=== PATIENT | male | born 1965 | race Caucasian/White ===

== ENCOUNTER 2020-02-09 10:11 | Emergency (ER) | payer OTHER ==
[~2020-02-09] VITALS: Ht 177.8 cm; Wt 107.5 kg
[2020-02-09 11:04] LABS: BASOPHILS ABSOLUTE AUTO 0.03 K/mm3 (0.00-0.23); BASOPHILS PERCENT AUTO 1 % (0-2); EOSINOPHILS ABSOLUTE AUTO 0.11 K/mm3 (0.00-0.68); EOSINOPHILS PERCENT AUTO 2 % (0-6); Hematocrit 46.9 % (37.0-53.0); Hemoglobin 16.2 g/dL (13.5-17.5); IMMATURE GRAN ABSOLUTE AUTO 0.02 K/mm3 (0.00-0.10); IMMATURE GRAN PERCENT AUTO 0 % (0-1); LYMPHOCYTES ABSOLUTE AUTO 1.82 K/mm3 (0.84-5.20); LYMPHOCYTES PERCENT AUTO 36 % (21-46); MONOCYTES ABSOLUTE AUTO 0.42 K/mm3 (0.16-1.47); MONOCYTES PERCENT AUTO 8 % (4-13); Mean Corpuscular HGB Conc 34.5 g/dL (31.5-36.5); Mean Corpuscular Volume 99 fL (80-100); NEUTROPHILS ABSOLUTE AUTO 2.72 K/mm3 (1.96-9.15); NEUTROPHILS PERCENT AUTO 53 % (41-73); Platelet Count 179 K/mm3 (150-400); RDW Coefficient Variation 11.9 % (11.7-14.2); RDW Standard Deviation 43.2 fL (35.1-46.3); Red Blood Cell Count 4.76 M/mm3 (4.30-5.90); White Blood Cell Count 5.12 K/mm3 (4.00-11.30)
[2020-02-09 11:20] LABS: International Normalized Ratio 1.02; Prothrombin Time Results 10.9 Sec (9.7-11.5)
[2020-02-09 11:22] LABS: Alanine Aminotransfer (ALT/SGP 66 U/L (12-78); Albumin, Blood 3.7 g/dL (3.4-5.0); Albumin/Globulin Ratio 1.1 (0.8-1.8); Alk Phos 236 U/L (50-136); Anion Gap 8 mmol/L (6-16); Aspartate Aminotrans (AST/SGOT 72 U/L (12-37); Bilirubin, Total 0.8 mg/dL (0.1-1.0); Blood Urea Nitrogen 7 mg/dL (8-24); Bun/Creatinine Ratio 8.6 (12.0-20.0); CO2, Blood 22 mmol/L (21-32); Calcium, Blood 8.8 mg/dL (8.5-10.1); Chloride, Blood 107 mmol/L (98-108); Creatinine, Blood 0.82 mg/dL (0.60-1.20); Globulin, Blood 3.4 g/dL (2.2-4.0); Glomerular Filtration Rate >60 (60-); Glucose, Blood 281 mg/dL (70-99); Potassium, Blood 3.8 mmol/L (3.5-5.5); Sodium, Blood 137 mmol/L (136-145); Total Protein, Blood 7.1 g/dL (6.4-8.2); Troponin I <0.015 ng/mL (0.000-0.040)
[2020-02-09] MEDS ORDERED: OMEP20ER PO (12:21)
[2020-02-09] MEDS ORDERED: Tambocor100 MG PO (12:21)
[2020-02-09] MEDS ORDERED: METO25 PO (12:22)
[2020-02-09] MEDS ORDERED: FURO20 PO (12:22)
[2020-02-09] MEDS ORDERED: BASAGLAR K100 UNIT/5 SC (12:23)
[2020-02-09] MEDS ORDERED: ADMELOG100 UNIT/2 SC (12:23)
[2020-02-09] MEDS ORDERED: GLIP5 PO (12:23)
== END 2020-02-09 16:07 | disposition home or self-care (01) ==
LOC: ER 10:11
PROVIDERS: Emergency Medicine
DX: E11.65 Type 2 diabetes mellitus with hyperglycemia (principal); E86.0 Dehydration; I25.2 Old myocardial infarction
CPT/HCPCS: 70470; 80053; 82947; 84484; 85025; 85610; 93005; 93010; 96361; 96374; 96375; 99285-25; J2405; J3010; J7030; Q9967

== ENCOUNTER 2020-09-03 18:13 | Inpatient (IN) | payer OTHER ==
[~2020-09-03] VITALS: Ht 177.8 cm; Wt 104.9 kg
[~2020-09-03 18:13] MED LIST: ADMELOG100 UNIT/2 SC; BASAGLAR K100 UNIT/5 SC; FURO20 PO; GLIP5 PO; METO25 PO; OMEP20ER PO; Tambocor100 MG PO
[2020-09-03 18:56] LABS: BASOPHILS PERCENT AUTO 0 % (0-2); EOSINOPHILS PERCENT AUTO 0 % (0-6); Hemoglobin 15.6 g/dL (13.5-17.5); IMMATURE GRAN ABSOLUTE AUTO 0.01 K/mm3 (0.00-0.10); IMMATURE GRAN PERCENT AUTO 0 % (0-1); LYMPHOCYTES ABSOLUTE AUTO 0.87 K/mm3 (0.84-5.20); LYMPHOCYTES PERCENT AUTO 29 % (21-46); MONOCYTES ABSOLUTE AUTO 0.24 K/mm3 (0.16-1.47); MONOCYTES PERCENT AUTO 8 % (4-13); Mean Corpuscular HGB 33.5 pg (26.0-34.0); Mean Corpuscular HGB Conc 35.5 g/dL (31.5-36.5); Mean Corpuscular Volume 94 fL (80-100); Mean Platelet Volume 10.2 fL (9.1-12.4); NEUTROPHILS ABSOLUTE AUTO 1.89 K/mm3 (1.96-9.15); NEUTROPHILS PERCENT AUTO 63 % (41-73); Platelet Count 125 K/mm3 (150-400); RDW Coefficient Variation 12.5 % (11.7-14.2); RDW Standard Deviation 43.8 fL (35.1-46.3); Red Blood Cell Count 4.66 M/mm3 (4.30-5.90); White Blood Cell Count 3.01 K/mm3 (4.00-11.30)
[2020-09-03 19:07] LABS: Alanine Aminotransfer (ALT/SGP 86 U/L (12-78); Albumin, Blood 2.9 g/dL (3.4-5.0); Albumin/Globulin Ratio 0.7 (0.8-1.8); Alk Phos 261 U/L (50-136); Anion Gap 8 mmol/L (6-16); Aspartate Aminotrans (AST/SGOT 169 U/L (12-37); Bilirubin, Total 1.4 mg/dL (0.1-1.0); Blood Urea Nitrogen 14 mg/dL (8-24); Bun/Creatinine Ratio 14.7 (12.0-20.0); CO2, Blood 24 mmol/L (21-32); Calcium, Blood 8.2 mg/dL (8.5-10.1); Chloride, Blood 97 mmol/L (98-108); Creatinine, Blood 0.95 mg/dL (0.60-1.20); Glomerular Filtration Rate >60 (60-); Glucose, Blood 274 mg/dL (70-99); Potassium, Blood 3.8 mmol/L (3.5-5.5); Sodium, Blood 129 mmol/L (136-145); Total Protein, Blood 6.9 g/dL (6.4-8.2)
[2020-09-03 20:22] LABS: Base Excess Venous 3.2 mmol/L; Bicarbonate Venous 27.6 mmol/L (24.0-30.0); PCO2 Venous 33.2 mmHg (38-42); PO2 Venous 101 mmHg (38-42); pH Blood Venous 7.51 (7.34-7.37)
--- NOTE | 2020-09-04 02:00 | NUR ---
PT ADMITTED TO ROOM ICU 8 AT 0035 THIS NIGHT. PT VERY TACHYPNEIC WITH EXERTION. GOOD HISTORIAN. STATES THAT HE HAS BEEN VERY SHORT OF BREATH AT HOME WHEREAS HE HAS BEEN NEAR SYNCOPAL AT TIMES. PT HAS NON PRODUCTIVE COUGH. WILL REVIEW CHART AND PLAN OF CARE FOR THIS PT.
[2020-09-04 04:43] LABS: BASOPHILS ABSOLUTE AUTO 0.01 K/mm3 (0.00-0.23); BASOPHILS PERCENT AUTO 0 % (0-2); EOSINOPHILS PERCENT AUTO 0 % (0-6); IMMATURE GRAN ABSOLUTE AUTO 0.02 K/mm3 (0.00-0.10); IMMATURE GRAN PERCENT AUTO 1 % (0-1); LYMPHOCYTES ABSOLUTE AUTO 0.47 K/mm3 (0.84-5.20); LYMPHOCYTES PERCENT AUTO 19 % (21-46); MONOCYTES ABSOLUTE AUTO 0.17 K/mm3 (0.16-1.47); MONOCYTES PERCENT AUTO 7 % (4-13); Mean Corpuscular HGB 33.6 pg (26.0-34.0); Mean Corpuscular HGB Conc 34.9 g/dL (31.5-36.5); Mean Corpuscular Volume 96 fL (80-100); Mean Platelet Volume 10.9 fL (9.1-12.4); NEUTROPHILS ABSOLUTE AUTO 1.78 K/mm3 (1.96-9.15); NEUTROPHILS PERCENT AUTO 73 % (41-73); Platelet Count 111 K/mm3 (150-400); RDW Coefficient Variation 12.5 % (11.7-14.2); RDW Standard Deviation 44.9 fL (35.1-46.3); Red Blood Cell Count 4.46 M/mm3 (4.30-5.90); White Blood Cell Count 2.45 K/mm3 (4.00-11.30)
[2020-09-04 05:04] LABS: Alanine Aminotransfer (ALT/SGP 80 U/L (12-78); Albumin, Blood 2.7 g/dL (3.4-5.0); Albumin/Globulin Ratio 0.7 (0.8-1.8); Alk Phos 250 U/L (50-136); Anion Gap 8 mmol/L (6-16); Aspartate Aminotrans (AST/SGOT 168 U/L (12-37); Bilirubin, Total 1.3 mg/dL (0.1-1.0); Blood Urea Nitrogen 15 mg/dL (8-24); Bun/Creatinine Ratio 18.8 (12.0-20.0); CO2, Blood 24 mmol/L (21-32); Calcium, Blood 7.7 mg/dL (8.5-10.1); Chloride, Blood 100 mmol/L (98-108); Globulin, Blood 3.8 g/dL (2.2-4.0); Glomerular Filtration Rate >60 (60-); Glucose, Blood 295 mg/dL (70-99); Potassium, Blood 4.7 mmol/L (3.5-5.5); Sodium, Blood 132 mmol/L (136-145); Total Protein, Blood 6.5 g/dL (6.4-8.2)
--- NOTE | 2020-09-04 05:18 | NUR ---
PT DEMONSTRATES POOR OXYGEN RESERVES. PT STANDS AT SIDE OF BED TO VOID, AND DESATURATES TO MID 80 PERCENT. INCREASED AIRVO FIO2 TO 94 PERCENT. PT RECOVERS SLOW. PT VOIDS Q.S. BACK TO BED, PT'S SATURATIONS IMPROVE AND AIRVO WAS PLACED BACK TO 82 PERCENT FIO2. PT BECOMES TACHYPNEIC WITH ANY EXERTION. PT INSTRUCTED THAT IF HE NEEDS TO VOID AGAIN, THAT HE WOULD NEED TO DO SO WHILE HE IS STILL IN BED. WILL CONTINUE TO MONITOR PT, AND WILL REPORT OFF TO ONCOMING RN.
--- NOTE | 2020-09-04 17:13 | NUR ---
ADMIT: 09/03/20 DISCHARGE: DX: COVID, Hypoxemia CC:kwilcox LEX CALL: RESIDENCE: home CAREGIVER:Nohemi Bellamy, Child, [id number] DX: Afib, CKD, COVID, GERD, HTN, see list DME: [facility], O2 and supplies CCM: Referral 01/14/2020 HOME HEALTH: none SUMMARY: Admit: 09/03/20 09/04/20- pt very SOB with minimal physical activity. No plan for d/c at this time. -liliam
--- NOTE | 2020-09-04 17:16 | NUR ---
Received report from ICU development officer Michelle that daughter is in ICU waiting room and may benefit from supportive visit. Pt COVID-19 positive and respiratory status is declining and is being intubated. Daughter Nohemi in ICU waiting room. Offered therapeutic listening and offered emotional support. Nohemi is tearful and this RN validated concerns. Continued therapeutic listening and answered questions. Spoke with Director Talent Acquisition Jasmina and discussed case. Jasmina will offer continued supportive visit. Palliative Care will remain available.
--- NOTE | 2020-09-04 17:30 | NUR ---
INTUBATION APPROX 1630, PT'S SPO2 STARTED TO DROP. BIPAP FIO2 INCREASED TO 90%. RT AND DR RG NOTIFIED OF CHANGED. PLAN FOR INTUBATION. RT AR, DR RG, 2 NURSING STUDENTS, PRIMARY RN IN ROOM. SACK FILLER AND ADDITIONAL RT SUPPORT AVIALABLE OUTSIDE OF ROOM. VITALS FILED SEPARTE 1645, 4MG VERSED GIVEN 1646, 60MG PROPOFOL GIVEN 1647, 40MG PROPOFOL GIVEN 1650 8.0 ETT PLACED 24 @ LIP 1650 PROPOFOL INFUSION STARTED AT 10MCG/KG/MIN NS BOLUS STARTED 1652 20MG PROPOFOL GIVEN 1654 PROPOFOL INFUSION INCRESED TO 20MCG/KG/MIN 1656 6MG VERSED GIVEN 1708 LEVOPHED STARTED 2MCG/MIN 1711 PROPFOL INFUSION INCREASED TO 40MCG/KG/MIN GROSSMAN PLACED PER ORDERS, OG PLACED. CENTRAL LINE PLACED BY DR RG TO RIGHT SUBLCLAVIAN. XRAY FOR CONFIRMATION
--- NOTE | 2020-09-04 17:55 | NUR ---
Spiritual care note: I met with dtr, Nohemi, in ICU waiting area while pt being intubated. She was clearly overwhelmed, tearful, and expressed great fear. She told me about pt's banegas with brain cancer and multiple other health issues. Nohemi has a loving, supportive spouse, and a close connection to her [place] community. Prayer is important and appreciated. Per RN recommendation, I encouraged Nohemi to go home and rest. She does not have Covid and has a young son at home. She responded well to spiritual direction, prayer, and affirmation of obvious love.
[2020-09-04 19:02] LABS: Source, Urine Catheter
[2020-09-04 19:19] LABS: Appearance, Urine Clear (Clear); Bilirubin, Urine Neg (Neg); Blood, Urine Neg (Neg); Color, Urine Yellow (P-Yellow); Glucose Qualitative, Urine 4+ (Neg); Ketones, Urine 1+ (Neg); Leukocyte Esterase, Urine Neg (Neg); Nitrite, Urine Neg (Neg); Protein, Urine 1+ (Neg); Specific Gravity, Urine 1.015 (1.003-1.022); Urobilinogen, Urine 2+ (Normal)
--- NOTE | 2020-09-04 19:22 | NUR ---
SHIFT SUMMARY PT INITIALLY ON AIRVO THIS MORNING, STARTED TO DROP SPO2 AT APPROX 1300. RT NOTIFIED AND PT PLACED TO BIPAP. PT TOLERATED FOR COUPLE HOURS AND STARTED TO DROP SPO2 AGAIN. PT INTUBATED PLACED ON VENT WITH SETTINGS AC 18/550/12.5/100% FIO2. DURING INTUBATION PT'S BP DROPPED. CENTRAL LINE PLACED TO RIGHT SUBCLAVIAN. LEVOPHED STARTED. ONCE BP RECOVERED FROM RSI AND 1L NS, LEVOPHED PLACED TO STANDBY. GROSSMAN AND OG PLACED. SEE PREVIOUS NOTE FOR MEDS ADMINISTERED DURING RSI. PT CURRENTLY REMAINS ON PROPOFOL AND PRECEDEX GTT FOR SEDATION.
--- NOTE | 2020-09-04 20:00 | NUR ---
ASSUMED CARE OF PT AT 1915. REPORT RECEIVED. PT PRESENTS IN BED. VENTED - AC 18, Tv 550, PEEP 12.5, FIO2 100 PERCENT. FIO2 HAS BEEN DECREASED TO 80 PERCENT, AND RT MADE PEEP ADJUSTMENT TO 12. WILL CONSIDER TITRATION OF FIO2. PT'S TEMP LOW AT 95.0 PER GROSSMAN TEMP PROBE. ADDED BEDSPREAD OVER PT. WILL WORK AT GETTING PT'S TEMPERATURE UP. DURING ADMIT PROCESS, PT HAD 96.6 TEMPORAL TEMPERATURE. PT AT THAT TIME ASKED FOR A PERSONAL FAN SECONDARY TO WHAT HE CLAIMED THAT HE WAS TOO WARM. WILL REVIEW CHART AND PLAN OF CARE FOR THIS PT.
[2020-09-04 20:02] LABS: PCO2 Arterial 31.8 mmHg (35-45); PO2 Arterial 133 mmHg (80-100); pH Blood Arterial 7.46 (7.35-7.45)
--- NOTE | 2020-09-04 22:00 | NUR ---
CALL MADE TO DR RG FOR DISCUSSION OF PT'S VENT, AND SETTINGS. NO CHANGES RECEIVED. WAS OK'D BY TO TITRATE FIO2 DOWN. WANTED TO LEAVE PEEP AT 12 THROUGH THE NIGHT. RATE REMAINS AT 18. RESULTS OF EARLIER ABG WAS RELAYED.
--- NOTE | 2020-09-04 23:47 | NUR ---
BEAR BHAVIKGGER WARMER PLACED ON PT SECONDARY TO FAILED ATTEMPTS TO GET PT'S TEMPERATURE TO GO HIGHER THAN 95.0 PER GROSSMAN TEMP PROBE. PENDING RESULTS. PT HAS NOT REQUIRED LEVOPHED FOR BLOOD PRESSURE SUPPORT. CALL RECEIVED FROM PT'S DAUGHTER. UPDATE GIVEN. WILL CONTINUE TO MONITOR.
--- NOTE | 2020-09-05 03:23 | NUR ---
SECONDARY TO PT'S TEMPERATURE BEING SLOW TO INCREASE, OPTED TO DO RECTAL TEMPERATURE. 95.1 RECTALLY VERSUS 95.2 TEMP PROVE GROSSMAN. CURRENT TEMP 96.3. VSS. CONTINUES ON PROPOFOL AND PRECEDEX FOR SEDATION. WILL CONSIDER DECREASING SEDATION. WILL DO SEDATION VACATION THIS MORNING. PT MAINTAINS OXYGEN SATURATIONS > 90 PERCENT WITH AC 18, Tv 550, FIO2 50 %, PEEP 12. PT TO HAVE CHEST X RAY THIS AM. WILL CONTINUE TO MONITOR PT.
[2020-09-05 05:15] LABS: BASOPHILS ABSOLUTE AUTO 0.01 K/mm3 (0.00-0.23); BASOPHILS PERCENT AUTO 0 % (0-2); EOSINOPHILS PERCENT AUTO 0 % (0-6); Hematocrit 45.8 % (37.0-53.0); Hemoglobin 15.8 g/dL (13.5-17.5); IMMATURE GRAN ABSOLUTE AUTO 0.01 K/mm3 (0.00-0.10); IMMATURE GRAN PERCENT AUTO 0 % (0-1); LYMPHOCYTES PERCENT AUTO 22 % (21-46); MONOCYTES ABSOLUTE AUTO 0.17 K/mm3 (0.16-1.47); MONOCYTES PERCENT AUTO 6 % (4-13); Mean Corpuscular HGB 33.3 pg (26.0-34.0); Mean Corpuscular HGB Conc 34.5 g/dL (31.5-36.5); Mean Corpuscular Volume 97 fL (80-100); Mean Platelet Volume 10.6 fL (9.1-12.4); NEUTROPHILS ABSOLUTE AUTO 1.97 K/mm3 (1.96-9.15); NEUTROPHILS PERCENT AUTO 71 % (41-73); Platelet Count 150 K/mm3 (150-400); RDW Coefficient Variation 12.5 % (11.7-14.2); Red Blood Cell Count 4.74 M/mm3 (4.30-5.90); White Blood Cell Count 2.76 K/mm3 (4.00-11.30)
[2020-09-05 05:40] LABS: Alanine Aminotransfer (ALT/SGP 70 U/L (12-78); Albumin, Blood 2.4 g/dL (3.4-5.0); Albumin/Globulin Ratio 0.6 (0.8-1.8); Alk Phos 236 U/L (50-136); Anion Gap 10 mmol/L (6-16); Aspartate Aminotrans (AST/SGOT 106 U/L (12-37); Bilirubin, Total 1.1 mg/dL (0.1-1.0); Blood Urea Nitrogen 17 mg/dL (8-24); Bun/Creatinine Ratio 25.1 (12.0-20.0); CO2, Blood 22 mmol/L (21-32); Calcium, Blood 8.2 mg/dL (8.5-10.1); Chloride, Blood 109 mmol/L (98-108); Creatinine, Blood 0.68 mg/dL (0.60-1.20); Globulin, Blood 3.9 g/dL (2.2-4.0); Glomerular Filtration Rate >60 (60-); Glucose, Blood 286 mg/dL (70-99); Potassium, Blood 4.4 mmol/L (3.5-5.5); Sodium, Blood 141 mmol/L (136-145); Total Protein, Blood 6.3 g/dL (6.4-8.2)
--- NOTE | 2020-09-05 06:17 | NUR ---
HAVE BEEN ABLE TO TITRATE DOWN PROPOFOL TO 35MCG'S/KG/MIN PRECEDEX TO 0.2MCG'S/KG/HOUR. PT'S TEMPERATURE NORMALIZED OUT TO 97.2 PER GROSSMAN TEMP PROBE. HAVE REMOVED BEAR HUGGER FROM PT. BLOOD PRESSURES HAVE DECREASED SOMEWHAT THIS AM. 250 ML NORMAL SALINE BOLUS DONE WHICH WAS AFFECTIVE TO CORRECT BLOOD PRESSURE. WILL CONTINUE TO MONITOR FOR NEED TO RESTART LEVOPHED. PT HAS BEEN SWEATY DURING NIGHT EVEN THOUGH BEING HYPOTHERMIC. DURING ADMIT PROCESS PRIOR TO INTUBATION, PT STATES THAT HE NORMALLY HAS LOWER TEMP, AND USES FAN BLOWING ON HIMSELF. PERSONAL FAN HAS BEEN UTILIZED FOR PT'S COMFORT. WILL MONITOR PT FOR HYPOTHERMIA WITH HUGGER NO LONGER IN USE AND FAN BLOWING ON PT. WILL CONTINUE TO MONITOR PT, AND WILL REPORT OFF TO ONCOMING RN.
--- NOTE | 2020-09-05 08:00 | NUR ---
ASSUMED CARE OF PT PT CURRENTLY SEDATED ON VENTILATOR, MOVES ALL EXTREMETIES, WRINKLES FOREHEAD WHEN ASKED TO OPEN EYES. PT NODS HEAD WHEN ASKED IF HE IS PAINFUL. ETT IN PLACED. VENT SETTINGS A/C 18/550/12/50% FIO2 WITH SPO2 >92%. BP SOFT AT TIMES. NO PRESSORS CURRENTLY ON, MAP >65. GROSSMAN TO GRAVITY DRAINAGE, CLEAR YELLOW URINE. OTHER VITALS CURRENTLY STABLE. PACED ON THE MONITOR.
--- NOTE | 2020-09-05 12:47 | NUR ---
REASSESSMENT PT REMAINS INTUBATED AND SEDATED, NO CHANGES TO VENTILATOR SETTINGS. PT HAD SHORT RUN OF AIVR APPROX [address] RG NOTIFIED. WANTED LEVOPHED BE TURNED ON TO INCREASE BP, TO ALLOW TOLERANCE OF HOME LOPRESSOR DOSE. CONTINUES TO BE IN PACED RHYTHM. TUBE FEEDS INITIATED AT 25ML/HR OF VHP PER ORDERS. NO OTHER ACUTE CHANGES FROM PREVIOUS ASSESSMENT. OTHER VITALS REMAIN STABLE.
--- NOTE | 2020-09-05 16:00 | NUR ---
REASSESSMENT PT REMAINS INTUBATED AND SEDATED, NO VENT SETTINGS CHANGED. BP STABLE ON 2MCG/MIN LEVOPHED. TEMP HAS STARTED TO INCREASE THIS AFTERNOON. DISCUSSED WITH DR IFRAH LAMA WHEN PT BECOMES FEBRILE. PACED ON THE BLOW MOLDING MACHINE TENDER, NO FURTHER IRREGULAR CARDIAC EVENTS.
--- NOTE | 2020-09-05 18:24 | NUR ---
SHIFT SUMMARY PT SEDATED AND INTUBATED ON VENTILATOR. SETTINGS REMAIN UNCHANGED OF AC 18/550/12/50% FIO2. SP02 REMAINED >92% AT REST, OCCAISSONAL DROP IN SPO2 WITH COUGHING OR TURNING. PT HAD ONE EPISODE OF AIVR. STARTED ON LEVOPHED TO BRING BP UP ENOUGH TO TOLERATE LOPRESSOR. LEVOPHED GTT HAS REMAINED AT 2MCG/MIN. PT REMAINS ON PROPOFOL AND PRECEDEX FOR SEDATION AND PRN FENTYNAL PUSHES. TEMP BEGAN TO CLIMB TODAY, TMAX 100.2. GROSSMAN TO GRAVITY DRAINAGE WITH QUANTITY SUFFICIFANT OUTPUT. CURRENTLY PACED ON THE MONITOR.
--- NOTE | 2020-09-05 21:00 | NUR ---
ASSUMPTION OF CARE PT INTUBATED AND SEDATED, GROSS MOVEMENT OF EXTREMETIES x4, PT DOES NOT OPEN EYES OR FOLLOW COMMANDS. VENT SET TO AC 18/550 PEEP 12 FIO2 50%, MONITOR SHOWS ATRIAL PACED RHYTHM WITH HR 70'S, LEVO GTT INFUSING TO MAINTAIN MAPS> 65. PT WITH MILD FEVER 100.4. OGT IN PLACE WITH TF @ 15ml/hr. GROSSMAN IN PLACE DRAINING YELLOW URINE. PROPOFOL AND PRECEDEX INFUSING FOR SEDATION, SEE FLOWSHEET FOR RATES AND TITRATIONS. CL TO R SUBCLAVIAN, SITE WNL, DRESSING IN TACT.
[2020-09-06 06:03] LABS: BASOPHILS PERCENT AUTO 0 % (0-2); EOSINOPHILS PERCENT AUTO 0 % (0-6); Hematocrit 43.8 % (37.0-53.0); IMMATURE GRAN ABSOLUTE AUTO 0.03 K/mm3 (0.00-0.10); IMMATURE GRAN PERCENT AUTO 1 % (0-1); LYMPHOCYTES ABSOLUTE AUTO 0.73 K/mm3 (0.84-5.20); LYMPHOCYTES PERCENT AUTO 15 % (21-46); MONOCYTES ABSOLUTE AUTO 0.18 K/mm3 (0.16-1.47); MONOCYTES PERCENT AUTO 4 % (4-13); Mean Corpuscular HGB 33.7 pg (26.0-34.0); Mean Corpuscular HGB Conc 34.2 g/dL (31.5-36.5); Mean Corpuscular Volume 98 fL (80-100); Mean Platelet Volume 10.1 fL (9.1-12.4); NEUTROPHILS ABSOLUTE AUTO 3.81 K/mm3 (1.96-9.15); NEUTROPHILS PERCENT AUTO 80 % (41-73); Platelet Count 167 K/mm3 (150-400); RDW Standard Deviation 47.5 fL (35.1-46.3); Red Blood Cell Count 4.45 M/mm3 (4.30-5.90); White Blood Cell Count 4.75 K/mm3 (4.00-11.30)
[2020-09-06 06:25] LABS: Alanine Aminotransfer (ALT/SGP 61 U/L (12-78); Albumin, Blood 2.2 g/dL (3.4-5.0); Albumin/Globulin Ratio 0.6 (0.8-1.8); Alk Phos 238 U/L (50-136); Anion Gap 7 mmol/L (6-16); Aspartate Aminotrans (AST/SGOT 92 U/L (12-37); Bilirubin, Direct 0.7 mg/dL (0.0-0.3); Bilirubin, Indirect 0.2 mg/dL (0.1-0.7); Bilirubin, Total 0.9 mg/dL (0.1-1.0); Blood Urea Nitrogen 19 mg/dL (8-24); Bun/Creatinine Ratio 30.2 (12.0-20.0); CO2, Blood 23 mmol/L (21-32); Calcium, Blood 7.5 mg/dL (8.5-10.1); Chloride, Blood 110 mmol/L (98-108); Creatinine, Blood 0.63 mg/dL (0.60-1.20); Globulin, Blood 3.6 g/dL (2.2-4.0); Glomerular Filtration Rate >60 (60-); Glucose, Blood 294 mg/dL (70-99); Magnesium, Blood 2.6 mg/dL (1.6-2.4); Phosphorus, Blood 2.9 mg/dL (2.5-4.9); Potassium, Blood 4.1 mmol/L (3.5-5.5); Sodium, Blood 140 mmol/L (136-145); Total Protein, Blood 5.8 g/dL (6.4-8.2)
--- NOTE | 2020-09-06 07:24 | NUR ---
SHIFT SUMMARY PT REMANST INTUBATED AND SEDATED, PROPOFOL DECREASED TO 20mcg/kg/min, PRECEDEX INCREASED TO 0.7mcg/kg/hr AND PRN FENTANYL PROVIDED FOR VENT TOLERANCE, PT FOLLOWS DIRECTIONS AT TIMES, VERY AGITATED AND REACHING FOR ETT AT OTHER TIMES. VENT SET TO AC 18/550 PEEP 12 FIO2 DECREASED TO 35% THIS SHIFT. MONITOR SHOWS ATRIAL PACED RHYTHM, HR 70'S, BP STABLE, LEVO ON SB. GROSSMAN REMAINS IN PLACE WITH GOOD URINE OUTPUT. OGT IN PLACE WITH TF @ GOAL RATE OF 40ml/hr, LOW RESIDUALS. NO BM THIS SHIFT. REPORT GIVEN TO MATT WELLS.
--- NOTE | 2020-09-06 12:25 | NUR ---
REASSESSMENT PT REMAINS INTUBATED AND SEDATED. SPOKE WITH DR. RG AND RECEIVED OK TO TURN PEEP DOWN TO 10 FROM 12. LEON, RT NOTIFIED. PT RESTS QUIETLY WHEN UNDISTURBED, BUT STARTS COUGHING/GAGGING ON THE TUBE WHEN WOKEN UP. PRN FENTANYL HELPS MAINTAIN PT COMFORT AND HELPS HIM SETTLE BACK DOWN. LUNGS ARE CLEAR. MINIMAL SECRETIONS. HR REMAINS PACED, BP STABLE. TOLERATING TUBE FEED WITH LESS THAN 10ML RESIDUAL. GROSSMAN DRAINING CL YELLOW URINE. PT'S JIMI CALLED AND WAS UPDATED BY THIS NURSE. CONTINUING TO MONITOR.
--- NOTE | 2020-09-06 17:41 | NUR ---
SHIFT SUMMARY PT REMAINED SEDATED AND INTUBATED TODAY. HE HAS TOLERATED THE LOWER PEEP OF 12 WITH AN FIO2 OF 40%. HE DESATURATES TO UPPER 80S WITH TURNS, BUT RECOVERS WITHIN A COUPLE MINUTES. MINIMAL SECRETIONS THIS AFTERNOON, CLEAR TO RED IN COLOR, THIN. HE REMAINS ATRIAL PACED, BP STABLE. TOLERATING TUBE FEED WITH MINIMAL RESIDUAL. GROSSMAN WITH CL YELLOW URINE. CONTINUING TO MONITOR.
--- NOTE | 2020-09-06 19:00 | NUR ---
ASSUMED CARE NOTE: ASSUMED CARE OF PT AT 1900, RECEVIED REPORT FROM MATT WELLS. PT IS INTUBATEED AND SEDATED. VENT SETTINGS AC18/550/10/50% SPO2 AT 92% SMALL AMOUNTS OF RED STREAKED SECRETIONS NOTED WITH ETT SUCTION. BP STABLE, PACED. PROPOFOL AT 30MCG/KG/MIN, PRECEDEX AT 0.7MCG/KG/HR. PT RESPONDS TO PAINFUL STIMULI. WILL RESIST ASSESSMENT OF PUPIL RESPONSE. PT WILL SIT UP IN BED AND MOVE ALL EXTREMITIES WITH ORAL CARE/SUCTION. TUBE FEED RUNNING AT GOAL 40ML/HR , RESIDUAL 30ML. GROSSMAN IS PATENT DRAINING TO GRAVITY. WILL CONTINUE TO MONITOR PT T/O SHIFT.
[2020-09-07 03:31] LABS: BASOPHILS ABSOLUTE AUTO 0.01 K/mm3 (0.00-0.23); BASOPHILS PERCENT AUTO 0 % (0-2); EOSINOPHILS PERCENT AUTO 0 % (0-6); Hematocrit 44.6 % (37.0-53.0); Hemoglobin 15.3 g/dL (13.5-17.5); IMMATURE GRAN ABSOLUTE AUTO 0.05 K/mm3 (0.00-0.10); IMMATURE GRAN PERCENT AUTO 1 % (0-1); LYMPHOCYTES ABSOLUTE AUTO 0.61 K/mm3 (0.84-5.20); LYMPHOCYTES PERCENT AUTO 13 % (21-46); MONOCYTES ABSOLUTE AUTO 0.14 K/mm3 (0.16-1.47); MONOCYTES PERCENT AUTO 3 % (4-13); Mean Corpuscular HGB 33.6 pg (26.0-34.0); Mean Corpuscular HGB Conc 34.3 g/dL (31.5-36.5); Mean Corpuscular Volume 98 fL (80-100); Mean Platelet Volume 10.1 fL (9.1-12.4); NEUTROPHILS ABSOLUTE AUTO 4.01 K/mm3 (1.96-9.15); NEUTROPHILS PERCENT AUTO 83 % (41-73); Platelet Count 181 K/mm3 (150-400); RDW Coefficient Variation 13.1 % (11.7-14.2); RDW Standard Deviation 46.5 fL (35.1-46.3); Red Blood Cell Count 4.55 M/mm3 (4.30-5.90); White Blood Cell Count 4.82 K/mm3 (4.00-11.30)
[2020-09-07 03:46] LABS: Albumin, Blood 2.1 g/dL (3.4-5.0); Anion Gap 5 mmol/L (6-16); Blood Urea Nitrogen 18 mg/dL (8-24); Bun/Creatinine Ratio 31.3 (12.0-20.0); CO2, Blood 25 mmol/L (21-32); Calcium, Blood 7.8 mg/dL (8.5-10.1); Chloride, Blood 110 mmol/L (98-108); Creatinine, Blood 0.58 mg/dL (0.60-1.20); Glomerular Filtration Rate >60 (60-); Glucose, Blood 259 mg/dL (70-99); Magnesium, Blood 2.4 mg/dL (1.6-2.4); Phosphorus, Blood 2.8 mg/dL (2.5-4.9); Potassium, Blood 4.1 mmol/L (3.5-5.5); Sodium, Blood 140 mmol/L (136-145)
--- NOTE | 2020-09-07 06:38 | NUR ---
SHIFT SUMMMARY: NO SIGNIFICANT CHANGES T/O SHIFT. PT CONTINUES TO BE ON VENT WITH SETTINGS AT AC18/550/10/55% FiO2, SPO2 ABOVE 90% PT CONTINUES TO BE SEDATED WITH PROPOFOL RUNNING AT 30MCG/KG/MIN, PRECEDEX AT 0.7MCG/KG/HR. PT GIVEN FENTYNAL PRN FOR SEDATION ADJUNCT, WITH GOOD EFFECT. PT DOES NOT TOLERATE BEING REPOSITIONED WELL, HE WILL BEGIN TO COUGH AND FIGHT VENT, WILL RECOVER AFTER A FEW MINUTES. PT HAS BEEN PACED, HR IN THE 70'S, BP STABLE. TEMP GROSSMAN PATENT AND DRAINING TO GRAVITY, GOOD URINE OUTPUT THIS SHIFT. TF RUNNING AT GOAL 40ML/HR, RESIDUALS LESS THAN 5. PT CONTINUES TO BE IN [facility], BED AT LOWEST LEVEL. WILL CONTINUE TO MONITOR PT UNTIL REPORT IS GIVEN TO ONCOMING SHIFT.
--- NOTE | 2020-09-07 12:26 | NUR ---
REASSESSMENT PT REMAINS INTUBATED AND SEDATED. WITH TURNS HE COUGHS AND GAGS ON THE TUBE. HE ALSO DESATURATES AND TAKES ABOUT 5 MINUTES TO RECOVER. LUNGS ARE CLEAR BUT DIMIN THE BASES. PACED RHYTHM, BP STABLE. TOLERATING TUBE FEEDS WITH LESS THAN 10ML RESIDUAL. GROSSMAN DRAINING CL YELLOW URINE. PT'S DAUGHTER STATED YESTERDAY THAT SHE WILL BE IN TO VISIT THIS AFTERNOON. CONTINUING TO MONITOR.
--- NOTE | 2020-09-07 16:26 | NUR ---
SHIFT SUMMARY PT REMAINED INTUBATED AND SEDATED TODAY. HIS OXYGEN NEEDS INCREASED THIS AFTERNOON WHILE HIS DAUGHTER WAS HERE AND FIO2 HAD TO BE TURNED UP TO 60%. LUNGS REMAIN CLEAR, DIM IN THE BASES. SMALL AMT OF THICK SPUTUM SUCTIONED OUT THIS AFTERNOON, POP IN COLOR WITH SM AMT OF OLD BLOOD. HR REMAINS PACED, BP STABLE. TOLERATING TUBE FEEDS. GROSSMAN DRAINING CL YELLOW URINE. PT'S JIMI WAS UPDATED BY NURSING STAFF. CONTINUING TO MONITOR.
--- NOTE | 2020-09-07 19:30 | NUR ---
PATIENT INTUBATED AND SEDATED WITH PRECEDEX 0.7 MCG, AND PROPOFOL 40 MCG, FOR SEDATION. PATIENT COUGHING AND SITTING UP WITH SLIGHT STIMULI, NOT FOLLOWING DIRECTIONS. VENT SET AT AC 18, TV 550, PEEP 10, FIO2 50%. OG IN PLACE WITH TUBE FEEDING AT GOAL RATE OF 40 CC/HR.
[2020-09-08 04:53] LABS: BASOPHILS ABSOLUTE AUTO 0.01 K/mm3 (0.00-0.23); BASOPHILS PERCENT AUTO 0 % (0-2); EOSINOPHILS PERCENT AUTO 0 % (0-6); Hematocrit 45.4 % (37.0-53.0); Hemoglobin 15.2 g/dL (13.5-17.5); IMMATURE GRAN ABSOLUTE AUTO 0.15 K/mm3 (0.00-0.10); IMMATURE GRAN PERCENT AUTO 3 % (0-1); LYMPHOCYTES ABSOLUTE AUTO 0.68 K/mm3 (0.84-5.20); LYMPHOCYTES PERCENT AUTO 12 % (21-46); MONOCYTES ABSOLUTE AUTO 0.21 K/mm3 (0.16-1.47); MONOCYTES PERCENT AUTO 4 % (4-13); Mean Corpuscular HGB 33.3 pg (26.0-34.0); Mean Corpuscular HGB Conc 33.5 g/dL (31.5-36.5); Mean Corpuscular Volume 99 fL (80-100); NEUTROPHILS PERCENT AUTO 81 % (41-73); Platelet Count 195 K/mm3 (150-400); RDW Standard Deviation 47.6 fL (35.1-46.3); Red Blood Cell Count 4.57 M/mm3 (4.30-5.90); White Blood Cell Count 5.55 K/mm3 (4.00-11.30)
[2020-09-08 05:12] LABS: Albumin, Blood 2.1 g/dL (3.4-5.0); Anion Gap 5 mmol/L (6-16); Blood Urea Nitrogen 17 mg/dL (8-24); Bun/Creatinine Ratio 29.1 (12.0-20.0); CO2, Blood 26 mmol/L (21-32); Calcium, Blood 7.8 mg/dL (8.5-10.1); Chloride, Blood 108 mmol/L (98-108); Creatinine, Blood 0.59 mg/dL (0.60-1.20); Glomerular Filtration Rate >60 (60-); Glucose, Blood 254 mg/dL (70-99); Magnesium, Blood 2.3 mg/dL (1.6-2.4); Phosphorus, Blood 3.1 mg/dL (2.5-4.9); Potassium, Blood 4.3 mmol/L (3.5-5.5); Sodium, Blood 139 mmol/L (136-145)
--- NOTE | 2020-09-08 07:32 | NUR ---
SUMMARY PATIENT REMAINS INTUBATED AND SEDATED WITH VENT AC 18, TV 550, PEEP 10, FIO2 50% PROPOFOL 40 MCG AND PRECEDEX 0.7 MCG FOR SEDATION. COUGHING AND GAGGING , AT TIMES SITTING UP WHEN COUGHING. NOT FOLLOWING DIRECTIONS. OG REMAINS IN PLACE WITH VITAL HP AT GOAL RATE OF 40 CC/HR WITH NO RESIDUALS T/O NIGHT.
--- NOTE | 2020-09-08 07:45 | NUR ---
ASSUMED CARE OF PT PT IS SEDATED ON VENTILATOR. SETTINGS AC 18/550/10/45% FIO2. FIO2 RECENTLY TITRATED DOWN BY RT. SEDATION BY PROPFOL AND PRECEDEX, PT AROUSABLE TO VOICE, NOT FOLLOWING DIRECTIONS WITH MOVEMENT. BILAT WRIST RESTRAINTS ON AND IN PLACE TO PREVENT SELF EXTUBATION. GROSSMAN TO GRAVITY DRAINAGE, CLEAR YELLOW URINE. OG TUBE INPLACE WITH TUBE FEEDS OF VITAL HIGH PROTEIN AT GOAL RATE, MINIMAL RESIDUALS. VITALS HAVE BEEN STABLE. MONITOR SHOWS PT TO BE PACED.
--- NOTE | 2020-09-08 12:00 | NUR ---
REASSESSMENT PT REMAINS INTUBATED AND SEDATED. TITRATED DOWN ON SEDATION MEDS. NO CHANGES TO VENT SETTINGS MADE. VITALS HAVE BEEN STABLE. NO ACUTE CHANGES TO PREVIOUS ASSESSMENT. PACED ON THE MONITOR.
--- NOTE | 2020-09-08 18:50 | NUR ---
SHIFT SUMMARY PT IS SEDATED ON VENTILATOR. IMPROVEMENT TO FIO2 MADE TODAY. END OF SHIFT VENT SETTINGS AC 18/550/10/40% FIO2. TITRATED SEDATION DOWN. PRECEDEX AND PROPOFOL CONTINUE TO INFUSE. IV FLUIDS STOPPED PER DR TODAY. NO BM FOR FEW DAYS, ORDERS RECEIVED FOR BOWEL CARE. TUBE FEEDS CONTINUE TO INFUSE, VITAL HIGH PROTEIN AT GOAL RATE OF 40ML/HR, MINIMAL RESIDUALS NOTED. GROSSMAN TO GRAVITY DRAINAGE WITH CLEAR, DK YELLOW URINE. VITALS HAVE BEEN STABLE. A-PACED ON THE MONITOR.
--- NOTE | 2020-09-08 20:00 | NUR ---
PATIENT REMAINS INTUBATED AND SEDATED WITH PRECEDEX 0.5 MCG AND PROPOFOL 35 MCG AWAKENS TO SLIGHT STIMULI COUGHING AND ATTEMPTING TO SIT UP WITH REPOSITIONING. OPENS EYES SLIGHTLY TO DIRECTIONS. VENT AC 18, TV 550, PEEP 10, FIO2 40% SUCTIONING SMALL AMT OF THICK POP SPUTUM VIA ETT. OG IN PLACE WITH VITAL HP TUBE FEEDING AT GOAL OF 40 CC/HR
--- NOTE | 2020-09-09 01:41 | NUR ---
PATIENT AWAKE SITTING UP COUGHING, SUCTIONED THICK POP PLUG AND SOME BLOODY SPUTUM. PATIENT NODDING YES AND NO TO QUESTIONS. PRECEDEX INCREASED TO 0.7 MCG AND FENTANYL GIVEN FOR C/O PAIN.
[2020-09-09 04:07] LABS: BASOPHILS ABSOLUTE AUTO 0.03 K/mm3 (0.00-0.23); BASOPHILS PERCENT AUTO 1 % (0-2); EOSINOPHILS ABSOLUTE AUTO 0.02 K/mm3 (0.00-0.68); EOSINOPHILS PERCENT AUTO 0 % (0-6); Hematocrit 43.2 % (37.0-53.0); Hemoglobin 14.8 g/dL (13.5-17.5); IMMATURE GRAN ABSOLUTE AUTO 0.23 K/mm3 (0.00-0.10); IMMATURE GRAN PERCENT AUTO 4 % (0-1); LYMPHOCYTES ABSOLUTE AUTO 0.61 K/mm3 (0.84-5.20); LYMPHOCYTES PERCENT AUTO 10 % (21-46); MONOCYTES PERCENT AUTO 5 % (4-13); Mean Corpuscular HGB 33.9 pg (26.0-34.0); Mean Corpuscular HGB Conc 34.3 g/dL (31.5-36.5); Mean Corpuscular Volume 99 fL (80-100); Mean Platelet Volume 10.4 fL (9.1-12.4); NEUTROPHILS ABSOLUTE AUTO 4.78 K/mm3 (1.96-9.15); NEUTROPHILS PERCENT AUTO 80 % (41-73); Platelet Count 200 K/mm3 (150-400); RDW Coefficient Variation 13.1 % (11.7-14.2); RDW Standard Deviation 47.8 fL (35.1-46.3); Red Blood Cell Count 4.37 M/mm3 (4.30-5.90); White Blood Cell Count 5.97 K/mm3 (4.00-11.30)
[2020-09-09 04:24] LABS: Anion Gap 3 mmol/L (6-16); Blood Urea Nitrogen 19 mg/dL (8-24); Bun/Creatinine Ratio 31.6 (12.0-20.0); CO2, Blood 28 mmol/L (21-32); Chloride, Blood 106 mmol/L (98-108); Glomerular Filtration Rate >60 (60-); Glucose, Blood 214 mg/dL (70-99); Magnesium, Blood 2.3 mg/dL (1.6-2.4); Phosphorus, Blood 2.9 mg/dL (2.5-4.9); Sodium, Blood 137 mmol/L (136-145)
[2020-09-09 04:25] LABS: pH Blood Arterial 7.48 (7.35-7.45)
[2020-09-09 04:26] LABS: PO2 Arterial 55.1 mmHg (80-100)
--- NOTE | 2020-09-09 04:36 | NUR ---
PATIENT AWAKE AND CALM WITH PRECEDEX 0.7 MCG AND PROPOFOL 20 MCG, NODDING YES AND NO TO QUESTIONS. SEE RT CHARTING FOR WEAN.
--- NOTE | 2020-09-09 06:50 | NUR ---
SUMMARY PATIENT REMAINS INTUBATED AND SEDATED. ATTEMPT WEAN WITH PRECEDEX 0.5 PATIENT HAVING DIFFICULTY WITH GAGGING AND COUGHING, ALLIE WEAN BETTER WITH PRECEDEX AT 0.7 MCG. AFTER WEAN VENT PLACED BACK TO AC, PATIENT NODDING YES AND NO TO QUESTIONS, NO TO PAIN, YES TO WANTING TO BE MORE AWAKE. WHILE AWAKE PATIENT HAVING DIFFICULTY WITH GAGGING ON ETT. PRECEDEX 0.7 MCG AND PROPOFOL 30 MCG FOR SEDATION TO HELP PATIENT ALLIE ETT. OG REMAINS IN PLACE WITH VITAL HP AT GOAL RATE OF 40 CC/HR WITH MIN RESIDUALS.
--- NOTE | 2020-09-09 12:00 | NUR ---
REASSESSMENT PT SEDATED ON VENTILATOR. RT PLACED PT ON SPONTANOUS 10/5 FIO2 40%. PT AWAKENS TO VOICE, FOLLOWS COMMANDS, ANSWERS YES/NO APPROPRIATELY. BP STARTING TO TREND UPWARDS. NO OTHER ACUTE CHANGES NOTED. PACED ON THE MONITOR.
--- NOTE | 2020-09-09 16:00 | NUR ---
REASSESSMENT PT SEDATED ON VENTILATOR. VENT SETTINGS CHANGED BACK TO AC AFTER A SPONTANTOUS PERIOD OF A LITTLE OVER 3 HOURS. VENT SETTINGS AC 18/550/10/50% FIO2. PT SWTICHED BACK DUE TO DECREASE IN SPO2. BP CONTINUES TO TREND UPWARD. DISCUSSED WITH DR ESCAMILLA, NO NEW ORDERS AT THIS TIME, PLANS ON REVIEWING CHART TO PLACE NEW ORDERS. OTHER VITALS REMAIN STABLE. PACEMENT ON THE MONITOR. TUBE FEEDS CONTINUE TO INFUSE AT GOAL RATE, MINIMAL RESIDUALS.
--- NOTE | 2020-09-09 17:59 | NUR ---
09/09/20 Remains intubated, reducing flow, trial wean today.
--- NOTE | 2020-09-09 18:23 | NUR ---
SHIFT SUMMARY PT REMAINS INTUBATED AND SEDATED ON VENTILATOR. PT TOLERATED A SPONTATOUS TRAIL FOR APPROX 3 HOURS TODAY, THEN SWITCHED BACK TO PREVIOUS MODE. VENT SETTINGS ARE AC 18/550/10/50%FIO2. BP STARTED TO IMPROVE THIS EVENING. PRN MEDS AVAILABLE WITH PARAMENTERS. PT ALSO STARTED ON LASIX THIS EVENING WITH GOOD URINARY OUTPUT IN GROSSMAN. PT HAD A COUPLE OF SHORT EPISODES OF ACCELERATED VENTRICULAR RHYTHM, COMMONLY HAPPEDNED DURING PT MOVEMENT/ACTIVITY, BUT NOT ALWAYS. PT WOULD RETURN TO PACED RHYTHM. TUBE FEEDS CONTINUE TO INFUSE AT GOAL RATE OF VITAL HIGH PROTEIN OF 40ML/HR WITH MINIMAL RESIDUALS. PRECEDEX AND PROPOFOL CONTINUE TO INFUSE FOR SEDATION.
--- NOTE | 2020-09-09 19:45 | NUR ---
PATIENT REMAINS INTUBATED AND SEDATED WITH PRECEDEX 0.6 MCG AND PROPOFOL, PATIENT AWAKENS TO VERBAL STIMULI, OPENING EYES AND FOLLOWING SIMPLE DIRECTIONS, WHEN COUGHING PATIENT ATTEMPTS TO SIT UP AND REACHED TO ETT. VENT SET AT AC 18, TV 550, FIO2 40% PEEP TITRATED DOWN TO 8 FROM 10 BY RT SUCTIONING THICK POP SECRETIONS VIA ETT. OG IN PLACE WITH TUBE FEEDING AT GOAL RATE OF 40 CC/HR WITH MIN RESIDUALS.
--- NOTE | 2020-09-09 20:30 | NUR ---
PATIENT INTUBATED AND SEDATED, AT 1999 PATIENT NOT RESPONDING NO COUGH WITH SUCTIONING. PROPOFOL OFF, WITHIN 15 MIN PATIENT STARTED OPENING EYES AND NODDING YES AND NO TO QUESTIONS, BOTH HANDS EXTREMELY WEAK. PROPOFOL RESTARTED AT 10 MCG, TO HELP PATIENT ALLIE ETT. AMIODARONE CONTINUES AT 0.5 MG PLAN TO CONTINUE T/O NIGHT. LEVOPHED 4 MCG FOR HYPOTENSION, DOBUTAMINE AT 2 MCG HELPING TO WIDEN PULSE PRESSURE. GENERALIZED EDEMA CONTINUES, BOTH LEGS CONTINUE TO BE RED WITH BLISTERS TO LEFT BRANHAM. SCROTUM CONTINUES TO BE VERY SWOLLEN ALSO. SCLERAL EDEMA TO BOTH EYES. OG IN PLACE WITH PIVIT 1.5 INFUSING AT GOAL RATE OF 20 CC/HR. PATIENT CONTINUES TO HAVE HIGH RESIDUALS.
[2020-09-10 04:44] LABS: BASOPHILS ABSOLUTE AUTO 0.03 K/mm3 (0.00-0.23); BASOPHILS PERCENT AUTO 1 % (0-2); EOSINOPHILS ABSOLUTE AUTO 0.03 K/mm3 (0.00-0.68); EOSINOPHILS PERCENT AUTO 1 % (0-6); Hematocrit 44.8 % (37.0-53.0); Hemoglobin 15.1 g/dL (13.5-17.5); IMMATURE GRAN ABSOLUTE AUTO 0.22 K/mm3 (0.00-0.10); IMMATURE GRAN PERCENT AUTO 4 % (0-1); LYMPHOCYTES ABSOLUTE AUTO 0.62 K/mm3 (0.84-5.20); LYMPHOCYTES PERCENT AUTO 10 % (21-46); MONOCYTES ABSOLUTE AUTO 0.33 K/mm3 (0.16-1.47); MONOCYTES PERCENT AUTO 6 % (4-13); Mean Corpuscular HGB 33.3 pg (26.0-34.0); Mean Corpuscular HGB Conc 33.7 g/dL (31.5-36.5); Mean Corpuscular Volume 99 fL (80-100); Mean Platelet Volume 10.5 fL (9.1-12.4); NEUTROPHILS ABSOLUTE AUTO 4.73 K/mm3 (1.96-9.15); NEUTROPHILS PERCENT AUTO 79 % (41-73); Platelet Count 189 K/mm3 (150-400); RDW Standard Deviation 47.3 fL (35.1-46.3); Red Blood Cell Count 4.54 M/mm3 (4.30-5.90); White Blood Cell Count 5.96 K/mm3 (4.00-11.30)
[2020-09-10 05:04] LABS: Anion Gap 3 mmol/L (6-16); Blood Urea Nitrogen 19 mg/dL (8-24); Bun/Creatinine Ratio 33.2 (12.0-20.0); CO2, Blood 29 mmol/L (21-32); Calcium, Blood 8.1 mg/dL (8.5-10.1); Chloride, Blood 104 mmol/L (98-108); Creatinine, Blood 0.57 mg/dL (0.60-1.20); Glomerular Filtration Rate >60 (60-); Glucose, Blood 251 mg/dL (70-99); Magnesium, Blood 2.4 mg/dL (1.6-2.4); Phosphorus, Blood 3.5 mg/dL (2.5-4.9); Potassium, Blood 4.2 mmol/L (3.5-5.5); Sodium, Blood 136 mmol/L (136-145)
--- NOTE | 2020-09-10 06:44 | NUR ---
SUMMARY PATIENT REMAINS INTUBATED AND SEDATED PROPOFOL 40 MCG AND PRECEDEX 0.7 MCG. PATIENT AWAKENS TO SLIGHT STIMULI, NODDING YES AND NO TO QUESTIONS, FOLLOWING SIMPLE DIRECTIONS. HARSH COUGH, WITH PATIENT SITTING UP WHEN COUGHING. SUCTIONING BLOODY SECRETIONS VIA ETT. VENT AC 18, TV 550, PEEP 8, FIO2 40% PATIENT COOL AND DIAPHORETIC THE LAST THREE MORNINGS. OG REMAINS IN PLACE WITH VITAL HP AT GOAL RATE OF 40 CC/HR WITH MIN RESIDUALS T/O NIGHT.
--- NOTE | 2020-09-10 12:00 | NUR ---
REASSESSMENT PT REMAINS INTUBATED AND SEDATED ON VENTILATOR. ATTEMPTING TO TITRATE SEDATION DOWN AND MAINTAIN VENT TOLERANCE. NO ACUTE CHANGES TO PREVIOUS ASSESSMENT. VITALS HAVE BEEN STABLE. ADEQUATE DRAINAGE IN GROSSMAN FROM LASIX. PACED ON THE MONITOR.
--- NOTE | 2020-09-10 16:01 | NUR ---
Admit: / s/w Nohemi Bellamy by telephone, Family plan is to have Jose move in to apartment within the family home. Nohemi works from Home and is available to help him at any time. Discussed Caprice for Covid care, she prefers to have him come home.He previously walked with a cane, 6 stairs to climb at home, Explained I can help arranging home care needs close to time of discharge. I will follow Kiet needs, he is improving but still intubated. cp
--- NOTE | 2020-09-10 16:30 | NUR ---
REASSESSMENT PT HAD APPROX 45 SECS VTACH WHILE COUGHING, THEN SELF CONVERTED. QUARLES SHOWN RHYTHM STRIP, NO NEW ORDERS AT THIS TIME. SEDATION INCREASED BACK UP PT KEPT TRYING TO REACH FOR ETT. NO BM FOR MULT DAYS, ORDERS RECEIVED FOR BOWEL CARE. EARLIER IN THE AFTERNOON, DR ATTEMPTED TO DECREASE PEEP TO 5, PT ONLY TOLERATED A FEW MINUTES BEFORE DROPPING SPO2. VENT SETTINGS CHANGED BACK TO PREVIOUS SETTINGS. AC 18/550/8/40% FIO2. OTHER VITALS HAVE REMAINED STABLE. PACED ON THE MONITOR.
--- NOTE | 2020-09-10 18:16 | NUR ---
SHIFT SUMMARY PT REMAINS INTUBATED AND SEDATED ON VENTILATOR. VENT SETTINGS AC 18/550/8/40%. ATTEMPTED DECREASE IN PEEP TODAY, PT UNABLE TO MAINTAIN SPO2. SEDATION ADJUSTED TODAY TO INCREASE IN PRECEDEX AND DECREASE IN PROPFOL PER DR'S REQUEST. CURRENT SETTINGS PROPOFOL AT 30MCG/KGMIN AND PRECEDEX AT 0.8MCG/KG/HR. PT AWAKENS TO VOICE, FOLLOWS COMMANDS AND ANSWERS YES/NO QUESTIIONS. TUBE FEEDS AT GOAL RATE OF VITAL HIGH PROTEIN OF 40ML/HR WITH MINIMAL RESIDUALS. GROSSMAN TO GRAVITY DRAINAGE, CLEAR YELLOW URINE. PT HAD ONE EPISODE OF V-TACH, WITH SELF CONVERSION WHILE COUGHING TODAY. PT REMAINS PACED ON THE MONITOR. OTHER VITALS HAVE REMAINED STABLE TODAY.
--- NOTE | 2020-09-10 20:00 | NUR ---
ASSUMED CARE OF PT AT 1915. REPORT RECEIVED. PT PRESENTS IN BED. VENTED - AC 18, Tv 550, PEEP 8, FIO2 45%. PT NOTED TO HAVE LOW GRADE FEVER. WILL CONTINUE TO MONITOR. PT HAS SOME BLOODY SECRETIONS FROM ETT. WILL REVIEW CHART AND PLAN OF CARE FOR THIS PT.
--- NOTE | 2020-09-11 07:15 | NUR ---
Assumed care of pt at 0700. Report received from Shahbaz WELLS. Pt sedated with 30 mcg/kg/min propofol and 0.8 mcg/kg/hr precedex. Pt opens eyes to verbal stimulus and withdraws from painful stimulus with this level of sedation, but does not follow commands or answer yes/no questions. Gag and cough present. PERRL. 8.[address], 24 cm ATT. Ventilator settings ACVC 18/550/8/40%. SpO2 90% or greater. Lungs clear, diminished in bases. OG tube with feeds and flushes per orders. 0 mL residual measured. Mathews catheter draining clear, yellow urine.
--- NOTE | 2020-09-11 08:00 | NUR ---
Pt had approx 30 seconds of wide QRS tachycardia while this RN in room. This event occurred while repositioning pt. Pt coughing before and during event. Pt had palpable pulse for entire event. Event resolved without intervention. Dr Missael gallardo.
--- NOTE | 2020-09-11 08:45 | NUR ---
Plan of care discussed with Dr Canas. Order given to decrease PEEP to 5.0. Plan to titrate propofol down and precedex up. Propofol now at 20 mcg/kg/min. Precedex at 1 mcg/kg/hr.
[2020-09-11 11:34] LABS: Anion Gap 3 mmol/L (6-16); Blood Urea Nitrogen 24 mg/dL (8-24); Bun/Creatinine Ratio 42.3 (12.0-20.0); CO2, Blood 29 mmol/L (21-32); Calcium, Blood 8.6 mg/dL (8.5-10.1); Chloride, Blood 106 mmol/L (98-108); Creatinine, Blood 0.57 mg/dL (0.60-1.20); Glomerular Filtration Rate >60 (60-); Glucose, Blood 305 mg/dL (70-99); Potassium, Blood 3.6 mmol/L (3.5-5.5); Sodium, Blood 138 mmol/L (136-145)
--- NOTE | 2020-09-11 16:00 | NUR ---
This RN in room, pt alert, following commands. Pt then sits up in bed and reaches for ETT with right hand. Right hand restrained, but pt manages to bring ETT within two inches from hand. This RN attempted to verbally redirect pt, but he shook his head "no" and continued to attempt self-extubation. Fentanyl given. Propofol increased to 30 mcg/kg/min and precedex increased to 1.4 mcg/kg/hr. This effectively resolved agitation. Dr Canas notified.
--- NOTE | 2020-09-11 17:30 | NUR ---
FiO2 increased to 50% by RTSamara. Pt spontaneously began coughing and desaturated to low 80s. Sats remained low after coughing resolved. Pt suctioned by RT and FiO2 increased. SpO2 90% or greater at this time.
--- NOTE | 2020-09-11 18:21 | NUR ---
SUMMARY Pt sedated with 1.4 mcg/kg/hr precedex and 30 mcg/kg/min propofol. Plan to titrate propofol down as pt tolerates. At this time, pt is sedated. Responsive to painful stimulus. Ventilator settings ACVC 18/550/5/50%. SpO2 90% or greater. 0 mL residual measured for entire shift from OG tube. One bowel movement this shift, liquid, with whole blueberries present. Lactulose DC'd as it was ordered to initiate bowel movement. Will continue to closely monitor until care handoff and bedside report with oncoming RN.
--- NOTE | 2020-09-11 19:00 | NUR ---
ASSUMED CARE ASSUMED CARE OF PATIENT. CAREGIVERS AT BEDSIDE. NO S/S OF PAIN OR DISCOMFORT NOTED. PT IS NOW COMFORT CARE STATUS. WILL MEDICATE/TREAT PATIENT NEEDED FOR COMFORT.
--- NOTE | 2020-09-11 19:00 | NUR ---
ASSUMED CARE ASSUMED CARE OF PATIENT. REMAINS INTUBATED- ETT 8.0, 24 CM. VENT SETTINGS: AC/VC 18/550, PEEP 5, FIO2 50%. RR 19-20. MONITOR SHOWS PACED RHYTHM, RATE 80s. BP STABLE. TEMP 100.9F PER GROSSMAN TEMP PROBE. SEDATED WITH PROPOFOL AT 30MCG/KG/MIN AND PRECEDEX AT 1.4MCG/KG/HR. OG WITH VITAL HIGH PROTEIN AT GOAL RATE OF 40CC/HR WITH 30CC H20 FLUSH Q4H. GROSSMAN PATENT AND DRAINING YELLOW URINE. SEE SHIFT ASSESSMENT FOR FULL ASSESSMENT.
--- NOTE | 2020-09-11 20:20 | NUR ---
NG TUBE UNABLE TO FLUSH NG TUBE AT THIS TIME. NG PULLED AND NEW 16F NG PLACED WITHOUT DIFFICULTY- PLACEMENT CONFIRMED BY ASPIRATION OF GASTRIC CONTENTS AND AUSCULTATION. TUBE FEEDING RESTARTED.
--- NOTE | 2020-09-12 01:10 | NUR ---
SEDATION/AGITATION PROPOFOL TITRATED DOWN TO 15MCG/KG/MIN OVER LAST SEVERAL HOURS, BUT NOW PT IS SITTING UP IN BED, KICKING LEGS, AND REACHING FOR ETT. SHAKES HEAD NO VIGOROUSLY WHEN ASKED TO LAY BACK IN BED. PROPOFOL INCREASED TO 30MCG/KG/MIN AND FENTANYL 50MCG IV GIVEN TO CONTROL AGITATION. PRECEDEX ALSO CONTIUES AT 1.4MCG/KG/HR.
[2020-09-12 03:57] LABS: BASOPHILS ABSOLUTE AUTO 0.04 K/mm3 (0.00-0.23); BASOPHILS PERCENT AUTO 1 % (0-2); EOSINOPHILS ABSOLUTE AUTO 0.08 K/mm3 (0.00-0.68); EOSINOPHILS PERCENT AUTO 1 % (0-6); Hematocrit 44.3 % (37.0-53.0); IMMATURE GRAN ABSOLUTE AUTO 0.15 K/mm3 (0.00-0.10); IMMATURE GRAN PERCENT AUTO 2 % (0-1); LYMPHOCYTES PERCENT AUTO 13 % (21-46); MONOCYTES ABSOLUTE AUTO 0.39 K/mm3 (0.16-1.47); MONOCYTES PERCENT AUTO 5 % (4-13); Mean Corpuscular HGB 33.6 pg (26.0-34.0); Mean Corpuscular HGB Conc 33.9 g/dL (31.5-36.5); Mean Corpuscular Volume 99 fL (80-100); NEUTROPHILS ABSOLUTE AUTO 5.86 K/mm3 (1.96-9.15); NEUTROPHILS PERCENT AUTO 78 % (41-73); Platelet Count 189 K/mm3 (150-400); RDW Coefficient Variation 12.9 % (11.7-14.2); RDW Standard Deviation 47.2 fL (35.1-46.3); Red Blood Cell Count 4.47 M/mm3 (4.30-5.90); White Blood Cell Count 7.52 K/mm3 (4.00-11.30)
[2020-09-12 04:20] LABS: Anion Gap 3 mmol/L (6-16); Blood Urea Nitrogen 21 mg/dL (8-24); Bun/Creatinine Ratio 37.2 (12.0-20.0); CO2, Blood 30 mmol/L (21-32); Calcium, Blood 8.1 mg/dL (8.5-10.1); Chloride, Blood 104 mmol/L (98-108); Creatinine, Blood 0.56 mg/dL (0.60-1.20); Glomerular Filtration Rate >60 (60-); Glucose, Blood 263 mg/dL (70-99); Magnesium, Blood 2.4 mg/dL (1.6-2.4); Potassium, Blood 4.2 mmol/L (3.5-5.5); Sodium, Blood 137 mmol/L (136-145)
--- NOTE | 2020-09-12 06:39 | NUR ---
SHIFT SUMMARY NO ACUTE CHANGES. REMAINS INTUBATED- AC/VC 15/550, PEEP 5, FIO2 50%. SEDATED WITH PROPOFOL BETWEEN 15-30MCG/KG/MIN (NOW AT 25MCG/KG/MIN) AND PRECEDEX 1.4MCG/KG/HR. ATTEMPTS TO TITRATE PROPOFOL BELOW 15MCG/KG/MIN WERE UNSUCCESSFUL WITH PATIENT BECOMING AGITATED AND ANXIOUS. ALSO MEDICATED WITH FENTANYL 50MCG IV X 2 DOSES AN ADJUNCT TO SEDATION WHEN PT WITH INCREASED AGITATION. NODS HEAD APPROPRIATELY AND FOLLOWS SIMPLE COMMANDS WHEN SEDATION DECREASED. BILATERAL SOFT WRIST RESTRAINTS IN PLACE TO PREVENT SELF-EXTUBATION- PT DOES REACH FOR ETT WHEN AWAKE. MONITOR SHOWS MOSTLY PACED RHYTHM. BP STABLE. TMAX 101.3F- MEDICATED WITH TYLENOL 650MG PT X 1. TEMP NOW 100.4F. OG WITH VHP AT GOAL RATE OF 40CC/HR. RESIDUALS <10CC. GROSSMAN PATENT AND DRAINING TO GRAVITY. RSC CL PATENT WITH DRESSING C/D/I. REMAINS IN [place] ISOLATION FOR COVID-19. WILL REPORT TO ONCOMING RN WHEN AVAILABLE.
--- NOTE | 2020-09-12 07:15 | NUR ---
ASSUMED CARE OF PATIENT AT 0715 AFTER RECEIVING REPORT FROM PRISCILLA FARR ALONGSIDE LEEANNE VALADEZ RN. PT IS ON PROPOFOL 25 MCG/KG/MIN AND PRECEDEX 1.4 MCG/KG/HR. ETT ATTACHED TO VENT WITH SETTINGS ACVC 18/550/5/50. RSC CENTRAL LINE IN ERIKA INFUSING AND FLUSHING WELL. OG TUBE WITH TUBE FEED AT GOAL RATE OF 40 ML/HR WITH 30ML WATER FLUSH Q4HR AND 10 ML RESIDUAL. TEMP GROSSMAN IN PLACE DRAINING TO GRAVITY. TEMP 100.2 AND BP STABLE AT THIS TIME.
--- NOTE | 2020-09-12 09:45 | NUR ---
Plan of care discussed with Dr Canas. Plan to titrate sedation down as tolerated, provider states he will order zyprexa to aid with this. Plan for open-ended breathing trial. Ventilator settings changed to spontaneous PS 7/5 with 50% FiO2. SpO2 90% or greater. RR 24-26. Tidal volume approx 380 mL. No coughing noted. Will continue to closely monitor.
--- NOTE | 2020-09-12 11:00 | NUR ---
Positive blood culture received. Notified Dr Canas. Plan to start vancomycin.
--- NOTE | 2020-09-12 17:00 | NUR ---
Discussed level of sedation with Dr Canas and low BP. Order given to DC IV lasix and continue titrating sedation down as tolerated.
--- NOTE | 2020-09-12 17:15 | NUR ---
Dr Stevens in to see pt. No new orders from provider.
--- NOTE | 2020-09-12 18:45 | NUR ---
SHIFT SUMMARY PATIENT REMAINS INTUBATED ON SPONTANEOUS VENT SETTINGS WITH PS 7/5%. SEDATED WITH PROPOFOL THAT WAS TITRATED DOWN TO 20 MCG/KG/MIN AND PRECEDEX AT CONTINUED RATE OF 1.4 MCG/KG/HR, PT TOLERATING WELL. PT CONTINUES TO OPEN EYES TO SOUND AND FOLLOWS REDIRECTION WELL WHEN COUGHING. SWR APPLIED BILATERALLY TO PREVENT SELF EXTUBATION SINCE PT CAN MOVE ARMS WHEN SEDATION IS LOWERED. TEMP 100-101 AND BLOOD CULTURE POSITIVE FOR GRAM POSITIVE COCCI/CLUSTERS, TREATED WITH VANCOMYCIN AND TYLENOL. BP HAS BEEN STABLE WITH SBP 90-120S AND PACED RHYTHM. TUBE FEED RUNNING AT GOAL RATE OF 40 ML/HR WITH 30 MLS Q4HR, RESIDUALS <15ML WITH MORE GAS IN RESIDUALS THAN PREVIOUSLY NOTED. GROSSMAN PATENT AND DRANING TO GRAVITY. RSC CL REMOVED, PICC PLACED TO ERIKA, DRESSINGS C/D/I.
--- NOTE | 2020-09-12 20:29 | NUR ---
ASSUMPTION OF CARE PT INTUBATED AND SEDATED. PROPOFOL INFUSING AT 20 MCG/KG/HR, PRECEDEX AT 1.4 MCG/KG/HR, AND NS AT TKO RATE. TF VHP RUNNING AT 40 ML/HR WITH 30 Q4H WATER FLUSHES. PT OPENS EYES TO VERBAL STIMULI. SBP 90'S, HR 70'S, SPO2 >92%. VENT ON SPONTANEOUS 7/5 50%. GROSSMAN PATENT AND DRAINING TO GRAVITY.
--- NOTE | 2020-09-13 06:08 | NUR ---
SHIFT SUMMARY PT REMAINS INTUBATED AND SEDATED. PROPOFOL INFUSING AT 15 MCG/KG/HR, PRECEDEX AT 1.4 MCG/KG/HR, AND NS AT TKO RATE. TF RUNNING AT GOAL RATE OF 30 WITH 30 Q4H WATER FLUSHES. GROSSMAN PATENT AND DRAINING TO GRAVITY. VENT SETTINGS AC 18/550/5/50%. HR PACED AT 70-80'S, SBP 130'S, SPO2 >92%. PT OPENS EYES TO VERBAL STIMULI, INTERMITTENTLY SQUEEZES HANDS TO VERBAL COMMAND.
--- NOTE | 2020-09-13 07:15 | NUR ---
Assumed care of pt at 0700. Report received from Tran WELLS. Pt receiving propofol at 15 mcg/kg/min and precedex at 1.4 mcg/kg/hr. Responsive to verbal stimulus. Follows commands. Chewing on ETT, gently. Stops when instructed to do so. Cough and gag present. Ventilator settings ACVC 18/550/5/50%. SpO2 90% or greater. 8.0 cm ETT is 24 cm ATG. 100% paced per monitor. BP stable. Trace edema BUE and BLE. Pedal and posttibial pulses identified with doppler. OG tube with feeds and flushes per orders. 20 mL residual measured. Grimaces with palpation in all 4 abd quadrants. No BM x 2 days. Plan to address with provider. Mathews cathteter patent and draining clear yellow urine.
--- NOTE | 2020-09-13 10:47 | NUR ---
Discussed pt's current level of sedation with Dr Canas, as well as duration of SBT yesterday. Provider orders for pt to be placed on spontaneous. RT, Maren, notified. Sedation remains at 15 mcg/gk/min propofol and 1.4 mcg/kg/hr precedex. Ventilator settings PS 9/5 and 50% FiO2. RR 32. Tidal volumes approx 380 mL. SpO2 90% or greater.
--- NOTE | 2020-09-13 11:19 | NUR ---
Dr Canas in to see patient. Discussed pt's tender abdomen. Discussed that pt's last bowel movement was two days ago. Plan to restart lactulose. Provider increased pt's ventilator settings to spontaneous PS 14/5. FiO2 remains at 50%. SpO2 90% or greater. RR 25, Tidal volumes 400-425 mL.
[2020-09-13 11:42] LABS: Creatinine, Blood 0.57 mg/dL (0.60-1.20); Vancomycin, Trough 8.5 ug/mL (5.0-10.0)
--- NOTE | 2020-09-13 17:28 | NUR ---
Plan of care discussed with Dr Canas. Discussed pt's fever. Discussed that fever has not been responding to tylenol. Discussed that pt's extremities are very cold, therefore ice packs are not being used. Discussed low BP and pt's current sedation. Blood cultures obtained. CXR obtained. LR bolus given and levophed available if needed.
--- NOTE | 2020-09-13 19:24 | NUR ---
SUMMARY Pt remains on 1.4 mcg/kg/hr precedex and 15 mcg/kg/min propofol. Pt became hypotensive this afternoon and sedation could not be decreased because pt was mildly agitated, gently trying to sit up and reach for ETT. Discussed with Dr Canas. 1 L LR bolus given. Pt's hypotension resolved. Levophed available at bedside, but had not been started as pt's BP has been stable with MAP in 70s and 80s. HR paced with rate in 70s and 80s. OG tube remains with feed and flushes per orders. Increase in residual noted this afternoon. Lactulose was started today to encourage pt to have bowel movement as abd is tender and distended. No BM this shift. Excellent output from hernandez catheter today. Pt has been febrile for entire shift. Temp does not change much after PT administration of tylenol, but improved a little bit after LR bolus. PICC line 5 cm exposed, dressed with tegaderm CHG. Update given to pt's daughter by Dr Canas. Report given to oncoming RN to assume care, Tran.
--- NOTE | 2020-09-13 21:45 | NUR ---
ASSUMPTION OF CARE REPORT RECEIVED FROM LEEANNE WELLS. PT INTUBATED AND SEDATED, VENT ON SPONTANEOUS 26/09. PRECEDEX INFUSING AT 1.4 MCG/KG/HR, PROPOFOL AT 15 MCG/KG/HR, AND TKO NS. TF REMAINS AT GOAL OF 30 WITH 30 Q4H WATER FLUSHES. GROSSMAN PATENT AND DRAINING SEE URINE TO GRAVITY. LUNG SOUNDS COARSE, SPO2 >92%, SBP 90 TO 115'S, HR 80-90'S. PT OPENS EYES TO NOISE AND FOLLOWS COMMANDS AND NODS HEAD APPROPRIATELY. TEMPERATURE ELEVATED AT 101.3, WILL CONTINUE TO MONITOR.
[2020-09-14 05:11] LABS: BASOPHILS ABSOLUTE AUTO 0.02 K/mm3 (0.00-0.23); BASOPHILS PERCENT AUTO 0 % (0-2); EOSINOPHILS ABSOLUTE AUTO 0.02 K/mm3 (0.00-0.68); EOSINOPHILS PERCENT AUTO 0 % (0-6); Hematocrit 41.5 % (37.0-53.0); Hemoglobin 13.7 g/dL (13.5-17.5); IMMATURE GRAN ABSOLUTE AUTO 0.07 K/mm3 (0.00-0.10); IMMATURE GRAN PERCENT AUTO 1 % (0-1); LYMPHOCYTES ABSOLUTE AUTO 1.05 K/mm3 (0.84-5.20); LYMPHOCYTES PERCENT AUTO 13 % (21-46); MONOCYTES ABSOLUTE AUTO 0.42 K/mm3 (0.16-1.47); MONOCYTES PERCENT AUTO 5 % (4-13); Mean Corpuscular HGB 33.1 pg (26.0-34.0); Mean Corpuscular Volume 100 fL (80-100); Mean Platelet Volume 10.8 fL (9.1-12.4); NEUTROPHILS ABSOLUTE AUTO 6.25 K/mm3 (1.96-9.15); NEUTROPHILS PERCENT AUTO 80 % (41-73); Platelet Count 153 K/mm3 (150-400); RDW Coefficient Variation 12.6 % (11.7-14.2); RDW Standard Deviation 46.8 fL (35.1-46.3); Red Blood Cell Count 4.14 M/mm3 (4.30-5.90); White Blood Cell Count 7.83 K/mm3 (4.00-11.30)
[2020-09-14 05:45] LABS: Anion Gap 4 mmol/L (6-16); Blood Urea Nitrogen 17 mg/dL (8-24); Bun/Creatinine Ratio 32.2 (12.0-20.0); CO2, Blood 27 mmol/L (21-32); Calcium, Blood 8.2 mg/dL (8.5-10.1); Chloride, Blood 105 mmol/L (98-108); Creatinine, Blood 0.53 mg/dL (0.60-1.20); Glomerular Filtration Rate >60 (60-); Glucose, Blood 276 mg/dL (70-99); Phosphorus, Blood 3.6 mg/dL (2.5-4.9); Potassium, Blood 4.1 mmol/L (3.5-5.5); Sodium, Blood 136 mmol/L (136-145)
--- NOTE | 2020-09-14 06:34 | NUR ---
SHIFT SUMMARY PT INTUBATED AND SEDATED. PROPOFOL INFUSING AT 20 MCG/KG/HR, PRECEDEX AT 1.4 MCG/KG/HR, AND NS TKO. OXACILLIN GIVEN Q4H. PT AWAKES TO VOICE AND FOLLOWS COMMANDS. TMAX THIS SHIFT 101.7, TYLENOL GIVEN PER CHARTING. PT SHAKES HEAD "NO" WHEN ASKED IF IN PAIN. RECTAL TUBE INSERTED THIS SHIFT DUE TO LARGE LIQUID STOOLS. GROSSMAN PATENT, DRAINING SEE URINE TO GRAVITY. PT'S PROPOFOL INCREASED BEGINNING OF THIS SHIFT DUE TO PT BECOMING AGITATED.
--- NOTE | 2020-09-14 08:15 | NUR ---
ASSUMED CARE REPORT FROM LAURA WELLS AT 0700. PT INTUBATED AND SEDATED. VENT SETTINGS AC 18/550/5/50%. LUNGS DIMINISHED IN BASES. SMALL AMOUNT OF THIN PINK SECRETIONS THROUGH ETT. COUGH/GAG/SWALLOW REFLEX PRESENT. PROPOFOL GTT 20 MCG/KG/MIN, PRECEDEX 1.4 MCG/KG/HR. PT OPENS EYES SPONTANEOUSLY, FOLLOWS SIMPLE COMMANDS. SHAKES HEAD NO TO PAIN. MOVES ALL EXTREMITES. ABD FIRM, TENDER. BT X 4. OGT IN PLACE. TUBE FEEDS AT GOAL, 30 ML/HR c 30 ML FLUSHES q4 HR. 10 ML RESIDUALS THIS AM. RECTAL TUBE IN PLACE, LIQUID BROWN STOOL OUT. GROSSMAN IN PLACE, YELLOW URINE c SEDIMENT OUT. SKIN COOL, PALE OTHER THAN FLUSHED FACE. TEMP 100.6, FAN IN PLACE. PEDAL PULSES BY DOPPLER. PICC TO KHADRAE, DRESSING C/D/I. WILL CONTINUE TO MONITOR.
--- NOTE | 2020-09-14 10:25 | NUR ---
DR QUARLES ROUNDS DISCUSSED FEVERS. PRECEDEX PLACED ON STANDBY D/T POSSIBLY BEING CONTRIBUTING FACTOR. WILL SEDATE c PROPOFOL. VENT SETTINGS CHANGED TO SPONT 10/5 50%. RR 30-35, TIDAL VOLUMES 300'S. ABLE TO [employer] PT TO TAKE SLOW DEEP BREATHS.
--- NOTE | 2020-09-14 17:23 | NUR ---
SHIFT SUMMARY PT REMAINS INTUBATED AND SEDATED. PT CHANGED TO SPONT MODE 10/5 60% AT APPROX 1000. TOLERATING WELL, TIDAL VOLUMES 300'S. OCCASIONAL COUGHING. PINK, THIN SECRETIONS. PRECEDEX PLACED ON STANDBY THIS SHIFT D/T POSSIBLE ELEVATION OF TEMP, TEMP DECREASED TO 98.8. PROPOFOL GTT AT 20 MCG/KG/MIN. PT OPENS EYES TO VERBAL STIMULI. SHAKES HEAD. FOLLOWS COMMANDS. LUNGS COARSE ON RIGHT SIDE, DIMINISHED IN LLL. SKIN PALE, COOL. MINIMAL RESIDUALS, TUBE FEEDS AT GOAL. GROSSMAN PATENT, DRAINING SEE URINE TO GRAVITY, 650 ML OUT THIS SHIFT. RECTAL TUBE IN PLACE, PATENT, DRAINING TO GRAVITY, 100 ML LIQUID BROWN STOOL OUT. LEVO GTT STARTED THIS SHIFT FOR MAPS<65, INFUSING AT 2 MCG/MIN AT THIS TIME. PLAN TO LEAVE ON SPONT MODE PT TOLERATES. WILL CONTINUE TO MONITOR UNTIL REPORT TO ONCOMING NURSE.
--- NOTE | 2020-09-14 19:41 | NUR ---
PATIENT INTUBATED AND SEDATED WITH PROPOFOL 20 MCG, PATIENT AWAKE NODDING YES AND NO TO QUESTIONS AND USING BOTH HANDS TO TRY TO COMMUNICATE . VENT SPONT 10/5 FIO2 69% PATIENT RESP 30-40, SUCTIONING THICK POP SPUTUM VIA ETT. LEVOPHED FOR HYPOTENSION, ABLE TO TITRATE DOWN TO 1 MCG. PATIENT NODDING NO TO WAITING MORE SEDATION AND YES TO PAIN, FENTANYL GIVEN FOR GENERAL PAIN. OG REMAINS IN PLACE WITH VITAL HP AT GOAL RATE OF 30 CC/HR.
[2020-09-15 04:27] LABS: BASOPHILS ABSOLUTE AUTO 0.03 K/mm3 (0.00-0.23); BASOPHILS PERCENT AUTO 0 % (0-2); EOSINOPHILS ABSOLUTE AUTO 0.15 K/mm3 (0.00-0.68); EOSINOPHILS PERCENT AUTO 1 % (0-6); Hematocrit 39.5 % (37.0-53.0); Hemoglobin 13.4 g/dL (13.5-17.5); IMMATURE GRAN ABSOLUTE AUTO 0.08 K/mm3 (0.00-0.10); IMMATURE GRAN PERCENT AUTO 1 % (0-1); LYMPHOCYTES ABSOLUTE AUTO 2.08 K/mm3 (0.84-5.20); LYMPHOCYTES PERCENT AUTO 20 % (21-46); MONOCYTES ABSOLUTE AUTO 0.66 K/mm3 (0.16-1.47); MONOCYTES PERCENT AUTO 6 % (4-13); Mean Corpuscular HGB 33.7 pg (26.0-34.0); Mean Corpuscular HGB Conc 33.9 g/dL (31.5-36.5); Mean Corpuscular Volume 99 fL (80-100); Mean Platelet Volume 10.8 fL (9.1-12.4); NEUTROPHILS ABSOLUTE AUTO 7.68 K/mm3 (1.96-9.15); NEUTROPHILS PERCENT AUTO 72 % (41-73); Platelet Count 186 K/mm3 (150-400); RDW Coefficient Variation 12.7 % (11.7-14.2); RDW Standard Deviation 46.5 fL (35.1-46.3); Red Blood Cell Count 3.98 M/mm3 (4.30-5.90); White Blood Cell Count 10.68 K/mm3 (4.00-11.30)
[2020-09-15 04:46] LABS: Anion Gap 5 mmol/L (6-16); Blood Urea Nitrogen 17 mg/dL (8-24); Bun/Creatinine Ratio 30.1 (12.0-20.0); CO2, Blood 29 mmol/L (21-32); Chloride, Blood 106 mmol/L (98-108); Creatinine, Blood 0.56 mg/dL (0.60-1.20); Glomerular Filtration Rate >60 (60-); Glucose, Blood 135 mg/dL (70-99); Potassium, Blood 2.9 mmol/L (3.5-5.5); Sodium, Blood 140 mmol/L (136-145)
--- NOTE | 2020-09-15 06:26 | NUR ---
SUMMARY PATIENT REMAINS INTUBATED AND SEDATED, ETT REMAINS IN PLACE CHANGING FROM SPONT BACK TO AC DUE TO PATIENTS RESP 30-40 AND PATIENT NODDING YES TO BEING TIRED. PRECEDEX REMAINS OFF T/O NIGHT, PATIENT CONTINUES TO SPIKE TEMP 101 TYLENOL GIVEN ONCE DURING THE NIGHT. PROPOFOL 40 MCG TO HELP PATIENT SLEEP, PATIENT AWAKENS EASILY TO SLIGHT STIMULI, NODDING YES AND NO TO QUESTIONS AND FOLLOWING DIRECTIONS WELL. LEVOPHED REMAINS OFF AT THIS TIME. OG REMAINS IN PLACE WITH VITAL HP AT GOAL RATE OF 30 CC/HR WITH MIN RESIDUALS. SCANT AMT OF LIQUID BROWN STOOL FROM RECTAL TUBE.
--- NOTE | 2020-09-15 08:15 | NUR ---
ASSUMED CARE: REPORT RECEIVED FROM STEFFEN Jacinto RN. ASSUMED CARE OF THIS PT AT APPROX 0700. ON ASSESSMENT, THE PT IS SEDATED W/ PROPOFOL & INTUBATED W/ 8.0 ETT NOTED TO BE 24.0 CM FAROOQ. VENT SETTINGS: AC 18/550/5/45% W/ O2 SATS > 92%. MONITOR SHOWS SR-ST W/ HR 90-100s, BP STABLE W/ LEVOPHED ON STANDBY. OGT IN PLACE W/ TUBE FEED OF VHP INFUSING AT GOAL RATE OF 30 ML/HR W/ 30 ML H2O FLUSH Q4H. PT TOLERATING WELL W/ LOW RESIDUALS - SEE I&O. RECTAL TUBE PATENT/ DRAINING BROWN-ORANGE LIQUID STLS TO GRAVITY. TEMP GROSSMAN PATENT/ DRAINING DARK YELLOW URINE. SKIN OVERALL CDI, NEW AREA OF REDNESS NOTED TO R KNEE & BRANHAM WHICH IS HOT TO TOUCH COMPARED TO SURROUNDING TISSUE THAT IS COOL TO TOUCH. WILL NOTIFY PROVIDER DURING ROUNDS. WILL CONTINUE TO MONITOR & UPDATE NEEDED.
--- NOTE | 2020-09-15 13:00 | NUR ---
DR PADILLA / SBT: PROVIDER AT BEDSIDE TO ELIZABETH PT. HE HAS NOW BEEN ON SPONTANEOUS MODE SINCE APPROX 0930. HE HAS BEEN TITRATED DOWN TO PS 5 AT APPROX 1105 & HAS TOLERATED THIS WELL FOR THE MOST PART, BUT IS HAVING PERIODS OF INCREASED RR TO 40s. O2 SATS > 92%. THE PT IS NODDING "YES" WHEN ASKED IF GETTING TIRED. DR PADILLA REQUESTS THAT HE REMAIN ON SBT UNTIL APPROX 1200 AT WHICH TIME HE MAY HAVE SEDATION RESUMED & RETURN TO AC MODE. SBT COMPLETED AT APPROX 1200. REDNESS TO PT's LEGS HAVE BEEN DISCUSSED. ORDERS FOR 40 MEQ ADDITIONAL KCL PLACED W/ FOLLOW-UP LABS IN AM. PRECEDEX D/C'd. US OF RIGHT KNEE COMPLETED & PROVIDER NOTIFIED OF RESULTS.
--- NOTE | 2020-09-15 16:51 | NUR ---
SHIFT SUMMARY: NO ACUTE CHANGES SINCE PRIOR UPDATES. PT REMAINS INTUBATED & SEDATED W/ PROPOFOL AT 40 MCG/KG/MIN. HE AWAKENS EASILY TO VERBAL STIMULUS & IS ABLE TO FOLLOW SIMPLE DIRECTIONS & ANSWER YES/NO QUESTIONS BY NODDING HIS HEAD. LS ARE DIM IN BASES, VENT SETTINGS: AC 18/550/5/35% W/ O2 SATS > 92%. MONITOR SHOWS SR-ST W/ HR 70-100s. LEVOPHED INFUSING AT 2 MCG/MIN FOR HYPOTENSION W/ DECREASED SBP 70s AFTER SEDATION RESUMED AT END OF SBT. NO CHANGES TO TUBE FEEDINGS, PT CONTINUES TO TOLERATE WELL W/ LOW RESIDUALS - SEE I&O. RECTAL TUBE DRAINING BROWN LIQUID STLS TO GRAVITY. TEMP GROSSMAN PATENT/ DRAINING DARK YELLOW URINE. SKIN CONDITION OVERALL CDI. AREAS OF REDNESS/ HEAT HAVE MIGRATED DOWN THE PT's LEGS & ARE NOW OUTSIDE OF THE MARKINGS PLACED BY THE PROVIDER. DR PADILLA AWARE OF THIS & BELIEVES THAT THE PT MAY BE EXPERIENCING A RASH R/T PERSISTANT FEVER. WILL CONTINUE TO MONITOR & REPORT OFF TO ONCOMING RN.
--- NOTE | 2020-09-15 19:45 | NUR ---
PATIENT REMAINS INTUBATED AND SEDATED, AWAKE AND RESTLESS, COUGHING ON ETT. NODDING YES AND NO TO QUESTIONS. BILAT WRIST RESTRAINTS CONTINUE, PATIENT CONTINUES TO REACH FOR ETT WHEN HE IS COUGHING. PROPOFOL 40 MCG CONTINUES TO HELP PATIENT ALLIE ETT. SUCTIONING POP SPUTUM FROM ETT. VENT AC 18, TV 550, PEEP 5, FIO2 35% LEVOPHED 2MCG FOR HYPOTENSION. OG IN PLACE WITH VITAL HP AT GOAL RATE OF 30 CC/HR. RECTAL TUBE REMAINS IN PLACE WITH VERY LITTLE BROWN LIQUID STOOL.
--- NOTE | 2020-09-15 20:40 | NUR ---
SMALL AMT OF LIQUID BROWN STOOL IN RECTAL TUBE, TUBE REMOVED. PATIENT NODING YES WHEN ASKED IF FEELING MORE COMFORTABLE.
--- NOTE | 2020-09-15 22:27 | NUR ---
09/15/[address] Kumari, Serious but stable condition, remains intubated. no discharge planning at this time. Will be in contact with Daughter as Jose shows improved. cp
[2020-09-16 03:21] LABS: PCO2 Arterial 35.8 mmHg (35-45)
[2020-09-16 03:35] LABS: BASOPHILS ABSOLUTE AUTO 0.03 K/mm3 (0.00-0.23); BASOPHILS PERCENT AUTO 0 % (0-2); EOSINOPHILS ABSOLUTE AUTO 0.14 K/mm3 (0.00-0.68); EOSINOPHILS PERCENT AUTO 2 % (0-6); Hematocrit 38.5 % (37.0-53.0); Hemoglobin 12.8 g/dL (13.5-17.5); IMMATURE GRAN ABSOLUTE AUTO 0.05 K/mm3 (0.00-0.10); IMMATURE GRAN PERCENT AUTO 1 % (0-1); LYMPHOCYTES ABSOLUTE AUTO 1.64 K/mm3 (0.84-5.20); LYMPHOCYTES PERCENT AUTO 21 % (21-46); MONOCYTES ABSOLUTE AUTO 0.56 K/mm3 (0.16-1.47); MONOCYTES PERCENT AUTO 7 % (4-13); Mean Corpuscular HGB 33.2 pg (26.0-34.0); Mean Corpuscular HGB Conc 33.2 g/dL (31.5-36.5); Mean Corpuscular Volume 100 fL (80-100); Mean Platelet Volume 10.5 fL (9.1-12.4); NEUTROPHILS ABSOLUTE AUTO 5.36 K/mm3 (1.96-9.15); NEUTROPHILS PERCENT AUTO 69 % (41-73); Platelet Count 161 K/mm3 (150-400); RDW Coefficient Variation 12.8 % (11.7-14.2); RDW Standard Deviation 47.5 fL (35.1-46.3); Red Blood Cell Count 3.85 M/mm3 (4.30-5.90); White Blood Cell Count 7.78 K/mm3 (4.00-11.30)
[2020-09-16 03:50] LABS: Anion Gap 4 mmol/L (6-16); Blood Urea Nitrogen 13 mg/dL (8-24); Bun/Creatinine Ratio 23.2 (12.0-20.0); CO2, Blood 28 mmol/L (21-32); Chloride, Blood 108 mmol/L (98-108); Creatinine, Blood 0.56 mg/dL (0.60-1.20); Glomerular Filtration Rate >60 (60-); Glucose, Blood 211 mg/dL (70-99); Magnesium, Blood 2.2 mg/dL (1.6-2.4); Potassium, Blood 3.6 mmol/L (3.5-5.5); Sodium, Blood 140 mmol/L (136-145)
--- NOTE | 2020-09-16 06:42 | NUR ---
SUMMARY PATIENT RESTLESS AND COUGHING OFF AND ON T/O NIGHT, SUCTIONING POP SPUTUM VIA ETT. VENT SET AT AC 18, TV 550, PEEP 5, FIO2 35% PATIENT MEDICATED WITH FENTANYL AND ATIVAN PRN AND PROPOFOL TITRATED TO HELP PATIENT ALLIE ETT. PATIENT NOW RELAXED AND CALM, NODDING YES AND NO TO QUESTIONS PROPOFOL TITRATED DOWN TO 35 MCG. LEVOPHED TITRATED FOR HYPOTENSION NOW AT [address] WITH VITAL HP AT GOAL RATE OF 30 CC/HR. RECTAL TUBE WAS REMOVED, WITH NO BM T/O NIGHT.
--- NOTE | 2020-09-16 07:56 | NUR ---
ASSUMED CARE OF PATIENT AT 0700 AFTER RECEIVING REPORT FROM PRISCILLA BOURNE ALONGSIDE MATT APONTE RN. PATIENT REMAINS ON VENT WITH SETTINGS AC 18/550/5/35%, TOLERATING WELL WITH SOME COUGHING WHEN AWAKENED DURING ASSESSMENT. PATIENT OPENING EYES SLIGHTLY TO SOUND AND NOT FOLLOWING DIRECTIONS AT THIS TIME, BUT IS ABLE TO RESPOND TO QUESTIONS BY SHAKING HEAD YES AND NO. PROPOFOL RUNNING AT 35 MCG/KG/MIN AND LEVOPHED AT 6 MCG/MIN. PICC LINE ERIKA C/D/I AND INFUSING. GROSSMAN CATHETER PATENT AND DRAINING TO GRAVITY. PATIENT AFEBRILE AND AREAS OF REDNESS NO LONGER PRESENT.
--- NOTE | 2020-09-16 08:10 | NUR ---
ASSUMED CARE: REPORT RECEIVED FROM STEFFEN Jacinto RN. ASSUMED CARE OF THIS PT AT APPROX 0700 ALONGSIDE PRESS OFFBEARER PASTORA Dale, WHO WILL COMPLETE PRIMARY DOCUMENTATION FOR THIS PT. WILL CONTINUE TO MONITOR & UPDATE NEEDED.
--- NOTE | 2020-09-16 11:45 | NUR ---
SPONTANEOUS BREATHING TRIAL: THE PT HAS BEEN PLACED ON SPONTANEOUS W/ PS 8, PEEP 5 & FIO2 35% BY DR PADILLA AT APPROX 1040. PROPOFOL PLACED ON STANDBY AT THIS TIME. PROVIDER STS THAT IF THE PT IS ABLE TO CONTINUE ON SPONTANEOUS W/ RR < 35 UNTIL APPROX 1130, THEN EXTUBATION WILL BE CONSIDERED. IF THE PT BECOMES MORE TACHYPNEIC W/ RR > 35, EXTUBATION WILL NOT BE CONSIDERED TODAY. THE PT's RR HAS CONTINUED INCREASING & IS > 35 ON AVG. HE IS HAVING MOD AMNTS OF THICK POP/PINK TINGED SPUTUM SUCTIONED THROUGHT ETT. PROVIDER AWARE & STS OKAY TO RESEDATE THE PT/ RETURN TO AC MODE ON VENT. STEFFEN Pardo, RT, AWARE & IS AT BEDSIDE. AC SETTINGS: 18/550/5/35% RESUMED AT 1130. PROPOFOL ALSO RESUMED AT PRIOR RATE OF 35 MCG/KG/MIN. LEVOPHED RESUMED SHORTLY AFTER THIS FOR HYPOTENSION R/T SEDATION. THE PT IS NOW RESTING QUIETLY W/ RR DECREASED TO 18-22.
--- NOTE | 2020-09-16 12:00 | NUR ---
DR PADILLA / DR CANCHOLA: DR PADILLA HAS BEEN AT BEDSIDE THIS AM TO EVAL PT. SHE HAS CLARIFIED THAT SHE WOULD LIKE THE PT's SCHEDULED METOPROLOL TO BE HELD WHEN THE PT ACTIVELY HAS LEVOPHED INFUSING, CONTRARY TO PRIOR VERBAL ORDERS FROM DR RG. SHE STS THAT IF THE PT IS HAVING INCREASING ARRHYTHMIAS OR AN UNCONTROLLED HR, THIS WILL BE READDRESSED. SBT COMPLETED - SEE PRIOR NOTE. DR CANCHOLA HAS BEEN IN THE UNIT THIS AM TO EVAL PT. ORDERS PLACED FOR AM LABS & NO OTHER CHANGES AT THIS TIME.
--- NOTE | 2020-09-16 18:56 | NUR ---
END OF SHIFT SUMMARY PATIENT CONTINUES TO OPEN EYES TO SOUND AND MOVES EXTREMITIES WHEN SEDATION IS LOWERED. CURRENT VENT SETTINGS AC 18/550/5/35%, TOLERATING WELL WITH O2 SAT >95%. PT CONTINUES TO HAVE MODERATE AMOUNT OF THICK PPO/PINK TINGED SPUTUM WHEN SUCTIONED WITH ETT TUBE. LEVOPHED TITRATED PER FLOWSHEET, BP LABILE. HYPOTENSION WORSENED WITH INCREASED SEDATION. TUBE FEED RUNNING AT GOAL RATE OF 30 ML/HR WITH 30ML WATER FLUSH Q4 HR. PICC ERIKA C/D/I. GROSSMAN CATHETER PATENT AND DRAINING SEE URINE TO GRAVITY. DAUGHTER AT BEDSIDE FOR AROUND AN HOUR TODAY.
--- NOTE | 2020-09-16 19:30 | NUR ---
PATIENT REMAINS INTUBATED AND SEDATED WITH VENT SET AC 18, TV 550, PEEP 5, FIO2 35% SUCTIONING FREQUENTLY. SEDATED WITH PROPOFOL 35 MCG FOLLOWING SIMPLE DIRECTIONS, AND NODDING YES AND NO TO QUESTIONS. FENTANYL GIVEN FOR PAIN. LEVOPHED FOR HYPOTENSION. OG IN PLACE WITH VITAL HP AT GOAL RATE OF 30 CC/HR. MOTRIN FOR FEVER.
[2020-09-17 05:35] LABS: BASOPHILS ABSOLUTE AUTO 0.02 K/mm3 (0.00-0.23); BASOPHILS PERCENT AUTO 0 % (0-2); EOSINOPHILS ABSOLUTE AUTO 0.17 K/mm3 (0.00-0.68); EOSINOPHILS PERCENT AUTO 3 % (0-6); Hematocrit 36.3 % (37.0-53.0); IMMATURE GRAN ABSOLUTE AUTO 0.05 K/mm3 (0.00-0.10); IMMATURE GRAN PERCENT AUTO 1 % (0-1); LYMPHOCYTES ABSOLUTE AUTO 1.36 K/mm3 (0.84-5.20); LYMPHOCYTES PERCENT AUTO 21 % (21-46); MONOCYTES ABSOLUTE AUTO 0.54 K/mm3 (0.16-1.47); MONOCYTES PERCENT AUTO 8 % (4-13); Mean Corpuscular HGB 33.6 pg (26.0-34.0); Mean Corpuscular HGB Conc 33.1 g/dL (31.5-36.5); Mean Corpuscular Volume 102 fL (80-100); Mean Platelet Volume 10.4 fL (9.1-12.4); NEUTROPHILS ABSOLUTE AUTO 4.41 K/mm3 (1.96-9.15); NEUTROPHILS PERCENT AUTO 67 % (41-73); Platelet Count 157 K/mm3 (150-400); RDW Coefficient Variation 12.8 % (11.7-14.2); RDW Standard Deviation 48.2 fL (35.1-46.3); Red Blood Cell Count 3.57 M/mm3 (4.30-5.90); White Blood Cell Count 6.55 K/mm3 (4.00-11.30)
[2020-09-17 05:53] LABS: Alanine Aminotransfer (ALT/SGP 83 U/L (12-78); Albumin, Blood 2.1 g/dL (3.4-5.0); Albumin/Globulin Ratio 0.5 (0.8-1.8); Alk Phos 233 U/L (50-136); Anion Gap 5 mmol/L (6-16); Aspartate Aminotrans (AST/SGOT 60 U/L (12-37); Blood Urea Nitrogen 9 mg/dL (8-24); Bun/Creatinine Ratio 15.1 (12.0-20.0); CO2, Blood 27 mmol/L (21-32); Chloride, Blood 108 mmol/L (98-108); Globulin, Blood 3.9 g/dL (2.2-4.0); Glomerular Filtration Rate >60 (60-); Glucose, Blood 217 mg/dL (70-99); Potassium, Blood 3.2 mmol/L (3.5-5.5); Sodium, Blood 140 mmol/L (136-145); Uric Acid, Blood 1.7 mg/dL (3.5-7.2)
--- NOTE | 2020-09-17 06:00 | NUR ---
SUMMARY PATIENT REMAINS INTUBATED AND SEDATED, WHEN AWAKE GAGGING AND COUGHING ON ETT. NODDING YES AND NO, FOLLOWING SIMPLE DIRECTIONS, BUT VERY WEAK. PROPOFOL 40 MCG AND FENTANYL PRN TO HELP PATIENT ALLIE ETT. LEVOPHED 4 MCG FOR HYPOTENSION. OG IN PLACE WITH VITAL HP AT GOAL RATE OF 30 CC/HR WITH MIN RESIDUALS T/O NIGHT. IBUPROFEN GIVEN FOR FEVER TWICE DURING THE NIGHT.
[2020-09-17 06:33] LABS: Magnesium, Blood 2.2 mg/dL (1.6-2.4)
[2020-09-17 06:34] LABS: Phosphorus, Blood 2.6 mg/dL (2.5-4.9)
--- NOTE | 2020-09-17 07:15 | NUR ---
Assumed care of pt at 0700. Report received from Sweta WELLS. Pt sedated with 40 mcg/kg/min propofol. Responsive to verbal stimulus. Cough and gag present. Ventilator settings ACVC 18/550/5/35%. SpO2 90% or greater. RR 18. ETT is 8.0 cm and remains 24 cm ATG. Paced per monitor. Receiving levophed at 4 mcg/min. Mathews catheter in place patent and draining. OG tube in place with feeds and flushes per orders. 10 mL residual measured.
--- NOTE | 2020-09-17 10:04 | NUR ---
Dr Mcdonald in to see pt. Provider stopped propofol and placed ventilator on spontaneous mode with PS 5/5, 35% FiO2. SpO2 97%. Pt is not coughing. RR 32-36. Tidal volumes 325-400 mL. Will continue to closely reassess.
--- NOTE | 2020-09-17 11:57 | NUR ---
Patient extuabted at 1130 by RT Alarcon. Extuabted to BiPAP per orders from Dr Mcdonald. BiPAP 12/5 and 30% FiO2. RR 35-40. Tidal volumes 500+. Pt lethargic, but cooperative. Restraints removed upon extubation. OG tube removed during extubation.
--- NOTE | 2020-09-17 12:21 | NUR ---
Patient assessed with Dr Mcdonald. RR remains in 40s. Pt appears calm. Opening eyes and gently moving extremities. Anxiety/pain medication not indicated at this time per Dr Mcdonald. IPAP increased from 12 to 14. BiPAP settings now 14/5, 30% FiO2. SpO2 90% or greater. Tidal volumes 600+ mL with no leak.
--- NOTE | 2020-09-17 18:02 | NUR ---
SUMMARY Pt receiving precedex at 0.4 mcg/kg/hr. Pt alert. Follows commands. Answers yes/no questions. Otherwise lethargic. Has not attempted to remove BiPAP independently. Resting in bed at this time. Due to pt's lethargy and prolonged intubation, bedside swallow was not done today. At this time, pt's HR is in the 20s. SR per monitor. Remains on 4 mcg/min levophed to maintain MAP of 65 or greater. HR 80s, paced. Good output from hernandez today. Will continue to closely monitor until care handoff and bedside report with oncoming RN.
--- NOTE | 2020-09-17 19:20 | NUR ---
SPOKE WITH DR. PADILLA ABOUT PT NOT HAVING AN NG/OG ANYMORE AND THAT I WILL BE UNABLE TO GIVE ANY PO MEDS ESPECIALLY HIS FLECAINIDE. DR. PADILLA DIDN'T SEEM CONCERNED WITH HIM MISSING 1 DOSE. I TOLD HER I COULD PUT AN NG DOWN; SHE SAID SHE WANTS TO WAIT FOR THE AM TO DO THAT.
--- NOTE | 2020-09-17 20:13 | NUR ---
ASSESSMENT/ASSUMED CARE: PT VERY LETHARGIC, BUT OPENS EYES TO VERBAL STIMULI. FALLS BACK ASLEEP QUICKLY. MOANS WITH ORAL CARE. SLOWLY NODS HEAD "NO" WHEN ASKED IF HAVING PAIN. LS VERY DIMINISHED T/O WITH BIOX 94% ON BIPAP 16/5 WITH FIO2 30% AND BUR 12. HEART SOUNDS DISTANT WITH MONITOR SHOWING 100% ATRAIL PACED RYTHYM. BILAT RADIAL PULSES STRONG. PEDAL PULSES FOUND WITH DOPPLER. 1+ EDEMA IN LE'S AND GENERALIZED IN UE'S. 3 LUMEN PICC ERIKA WITH PRECEDEX AT 10.4CC/HR= 0.4MCG/KG/HR WITH NS AT 10CC/HR. LEVOPHED AT 15CC/HR=4MCG/MIN. ABD R/O AND FIRM WITH HYPO BT X4. GROSSMAN DRAINING DARK SEE URINE.
--- NOTE | 2020-09-17 22:16 | NUR ---
PT MORE ALERT; ASKS ME WHAT I'M DOING. WHEN I TELL HIM I'M GOING TO TURN HIM, HE SAYS "NO YOUR NOT." I TOLD HIM I WAS GOING TO TURN HIM SO HE DOESN'T GET ANY SORES ON HIS BUTT. STATES HAVING PAIN IN SCROTAL AREA WHEN I CLEAN THEM AND PUT CREAM ON THEM.
--- NOTE | 2020-09-17 22:47 | NUR ---
PT PULLING AT BIPAP AND REFUSING RN TO PUT BACK ON. PT ATTEMPTING TO CRAWL OUT OF BED. RESTRAINTS APPLIED. PT C/O PAIN IN SCROTUM AREA. MEDS GIVEN.
[2020-09-18 03:48] LABS: PCO2 Arterial 42.8 mmHg (35-45); PO2 Arterial 65.3 mmHg (80-100); pH Blood Arterial 7.45 (7.35-7.45)
--- NOTE | 2020-09-18 04:00 | NUR ---
UPDATE: PT ANSWERS QUESTIONS; VERY SLOW TO RESPOND AND VERY SOFT VOICE. ORIENTED TO SELF. ASKS ME WHAT THE DATE IS 20 SECONDS AFTER I'VE JUST TOLD HIM; VERY FORGETFUL. C/O BACK PAIN; MEDICATED WITH FENTANYL. RESTRAINTS REMOVED. PT C/O BEING COLD, BLANKET APPLIED.
[2020-09-18 05:20] LABS: Anion Gap 3 mmol/L (6-16); Blood Urea Nitrogen 9 mg/dL (8-24); Bun/Creatinine Ratio 17.1 (12.0-20.0); CO2, Blood 29 mmol/L (21-32); Calcium, Blood 8.3 mg/dL (8.5-10.1); Chloride, Blood 112 mmol/L (98-108); Creatinine, Blood 0.53 mg/dL (0.60-1.20); Glomerular Filtration Rate >60 (60-); Glucose, Blood 165 mg/dL (70-99); Potassium, Blood 3.6 mmol/L (3.5-5.5); Sodium, Blood 144 mmol/L (136-145)
--- NOTE | 2020-09-18 09:00 | NUR ---
Assumed care of pt at 0700. Report received from Marit[facility] WE[facility]S. Pt A&O x 2. Answers questions. Follows commands. Verbalizes needs. States he is hungry and thirsty. Educated that provider needs to see pt first before we can trial his swallowing. Pt on BiPAP 16/5 and 30%. RR 20s. Tidal volumes 600+ but leak is present. Lungs clear in upper lobes, dim otherwise. Paced per heart monitor. BP stable. Levophed off.
--- NOTE | 2020-09-18 09:38 | NUR ---
Plan of care discussed with Dr Mcdonald. Pt's BiPAP changed to minimal settings, 10/5, and 30% FiO2. Plan to maintain this for one hour, and then pt can be changed to AirVo for speech therapy eval. At this time, plan for route of feccainide and metoprolol will be determined (PO vs. PT- which would require insertion of NG tube). Also plan to get PT up into chair today.
--- NOTE | 2020-09-18 11:04 | NUR ---
Pt taken off BiPAP and placed on AirVO with 35 LPM and 30% FiO2. Pt took metoprolol and fleccainide one at at time with applesauce, which speech therapy at bedside. Pt tolerated these well. Tolerated nectar thick liquids with spoon and tolerated applesauce and pudding- feeding self with supervision. Update given to Dr Mcdonald.
--- NOTE | 2020-09-18 15:48 | NUR ---
Patient remains on AirVO at this time. Tolerating well. Pt sat up in recliner for about 3 hours. Tolerated well. Worked with therapy while in recliner. Patient febrile. Ibuprofen given. Discussed fever with Dr Mcdonald. Pt resting in bed, wanting to take a nap. Plan to put patient back on BiPAP while sleeping.
--- NOTE | 2020-09-18 17:15 | NUR ---
SUMMARY: Admit: /11/03 Extubated, improving medical status. s/w Nohemi, daughter, she is excited about her father being extubated and speaking with him today!. She still plans to have him return to her home at discharge. Told her that I was leaving but Lydia would be available to help her at discharge.She asked me to fax her Adrian number. Completed. Benja will continue to follow for discharge planning. rico
--- NOTE | 2020-09-18 18:58 | NUR ---
SUMMARY No acute changes to last note. Pt tolerates BiPAP well while sleeping. Per daughter, pt is supposed to wear BiPAP at home when he sleeps. Pt tolerates AirVO while eating meals and receiving oral care. Levophed off. Precedex off. Report given to oncoming RN to assume care, Adela.
[2020-09-19 03:51] LABS: BASOPHILS ABSOLUTE AUTO 0.02 K/mm3 (0.00-0.23); BASOPHILS PERCENT AUTO 0 % (0-2); EOSINOPHILS PERCENT AUTO 4 % (0-6); Hematocrit 35.9 % (37.0-53.0); IMMATURE GRAN ABSOLUTE AUTO 0.04 K/mm3 (0.00-0.10); IMMATURE GRAN PERCENT AUTO 1 % (0-1); LYMPHOCYTES ABSOLUTE AUTO 1.59 K/mm3 (0.84-5.20); LYMPHOCYTES PERCENT AUTO 28 % (21-46); MONOCYTES ABSOLUTE AUTO 0.49 K/mm3 (0.16-1.47); MONOCYTES PERCENT AUTO 9 % (4-13); Mean Corpuscular HGB 33.8 pg (26.0-34.0); Mean Corpuscular HGB Conc 33.4 g/dL (31.5-36.5); Mean Corpuscular Volume 101 fL (80-100); Mean Platelet Volume 10.2 fL (9.1-12.4); NEUTROPHILS ABSOLUTE AUTO 3.26 K/mm3 (1.96-9.15); NEUTROPHILS PERCENT AUTO 58 % (41-73); Platelet Count 164 K/mm3 (150-400); RDW Coefficient Variation 12.7 % (11.7-14.2); RDW Standard Deviation 47.9 fL (35.1-46.3); Red Blood Cell Count 3.55 M/mm3 (4.30-5.90)
[2020-09-19 04:04] LABS: Anion Gap 4 mmol/L (6-16); Blood Urea Nitrogen 10 mg/dL (8-24); Bun/Creatinine Ratio 17.4 (12.0-20.0); CO2, Blood 28 mmol/L (21-32); Calcium, Blood 8.4 mg/dL (8.5-10.1); Chloride, Blood 109 mmol/L (98-108); Creatinine, Blood 0.58 mg/dL (0.60-1.20); Glomerular Filtration Rate >60 (60-); Glucose, Blood 108 mg/dL (70-99); Potassium, Blood 3.5 mmol/L (3.5-5.5); Sodium, Blood 141 mmol/L (136-145)
--- NOTE | 2020-09-19 05:15 | NUR ---
END OF SHIFT SUMMARY: PATIENT A/O X3 BUT IS FORGETFUL AT TIMES AND OOESN'T ALWAYS KNOW THE DATE/TIME. PATIENT HAS REMAINED STABLE ON AIRVOD HE DENIED USING HIS BIPAP WHILE SLEEPING TONIGHT. BP REMAINS STABLE AND PATIENT DENIES DISCOMFORT. PATIENT REPOSITIONED Q2 FOR COMFORT AND IBUPROFEN HELPING WITH HIGH TEMPS. PATIENT STATES HE "FEELS MUCH BETTER AND ALREADY ASKING ABOUT DISCHARGE. NO ISSUES ON SHIFT. WILL CONTINUE PURREE DIET AND ADVANCE TOLERATED
--- NOTE | 2020-09-19 07:15 | NUR ---
Assumed care of pt at 0700. Report received from Adela WELLS. Pt A&O x 4. Answers questions. Follows commands. Pleasant and cooperative with care. Pt on high flow, heated, humidified NC with 35 LPM flow and 30% FiO2. SpO2 90% or greater. HR 80 per monitor. BP stable. Bed in lowest position. Call light in reach. Pt denies need at this time.
--- NOTE | 2020-09-19 10:06 | NUR ---
UPDATE Pt up to chair using ceiling lift. Tolerated this well. Follows directions well. Pt tolerating meds whole in applesauce well. States he can take pills "the regular way". Educated on swallow precautions and pt verbalizes undrestanding. Tolerated puree breakfast well, feeding self independently but with supervision. This RN assisted pt to work with physical therapy. Pt was able to stand from recliner and walk 4 feet away from recliner and back to chair. SpO2 dropped to 85% occasionally but pt recovered within 10 seconds.
--- NOTE | 2020-09-19 17:53 | NUR ---
SUMMARY Pt is PCU status since Dr Stanley saw patient. Pt is now on 3 LPM NC. SpO2 90% or greater. BP stable. Pt ambulated 20 feet with occupational therapy. Tolerated well. Pt up in recliner for entire shift. Watches TV or uses cell phone as entertainment. Plan to assist pt back to bed before end of shift. Will continue to closely monitor until care handoff and bedside report with oncoming RN.
--- NOTE | 2020-09-19 18:09 | NUR ---
Call placed to daughter, Nohemi, to update on how Jose's day went.
--- NOTE | 2020-09-19 19:06 | NUR ---
Pt declined transfer back to bed. Offered shower but he stated "I had a spit bath yesterday. I'll take one tomorrow". Pt's daughter expressed concern that pt was afraid to fall asleep. Inquired if pt was having trouble falling asleep. Pt denied this. Offered sleep aid. Pt declined offer.
--- NOTE | 2020-09-19 22:11 | NUR ---
ASSUMED CARE OF PT @ 1900, REPORT FROM LEEANNE WELLS. PT A&OX4. FOLLOWS COMMANDS. IN BEDSIDE CHAIR INITIALLY, ASSISTED TO BED DURING ASSESSMENT. PT ABLE TO MOVE TO BED USING HIS WALKER, THIS NURSE HELPED MANAGE CORDS. PT ON 3LPM O2 VIA NC c O2 SATS >90%. PT BECAME DYSPNEIC DURING TRANSFER FOR A SHORT TIME, RECOVERED QUICKLY WITH SOME DEEP BREATHS THROUGH HIS NOSE. VSS. URINAL AT BEDSIDE WITHIN PTS REACH. CALL LIGHT IN REACH, NO COMPLAINTS OR NEEDS AT THIS TIME. WILL CONTINUE TO MONITOR.
[2020-09-20 04:13] LABS: BASOPHILS ABSOLUTE AUTO 0.03 K/mm3 (0.00-0.23); BASOPHILS PERCENT AUTO 1 % (0-2); EOSINOPHILS ABSOLUTE AUTO 0.19 K/mm3 (0.00-0.68); EOSINOPHILS PERCENT AUTO 4 % (0-6); Hematocrit 37.5 % (37.0-53.0); Hemoglobin 12.3 g/dL (13.5-17.5); IMMATURE GRAN ABSOLUTE AUTO 0.03 K/mm3 (0.00-0.10); IMMATURE GRAN PERCENT AUTO 1 % (0-1); LYMPHOCYTES ABSOLUTE AUTO 1.38 K/mm3 (0.84-5.20); LYMPHOCYTES PERCENT AUTO 28 % (21-46); MONOCYTES ABSOLUTE AUTO 0.51 K/mm3 (0.16-1.47); MONOCYTES PERCENT AUTO 10 % (4-13); Mean Corpuscular HGB 33.1 pg (26.0-34.0); Mean Corpuscular HGB Conc 32.8 g/dL (31.5-36.5); Mean Corpuscular Volume 101 fL (80-100); Mean Platelet Volume 10.3 fL (9.1-12.4); NEUTROPHILS ABSOLUTE AUTO 2.84 K/mm3 (1.96-9.15); NEUTROPHILS PERCENT AUTO 57 % (41-73); Platelet Count 175 K/mm3 (150-400); RDW Coefficient Variation 12.9 % (11.7-14.2); RDW Standard Deviation 47.5 fL (35.1-46.3); Red Blood Cell Count 3.72 M/mm3 (4.30-5.90); White Blood Cell Count 4.98 K/mm3 (4.00-11.30)
[2020-09-20 04:30] LABS: Anion Gap 6 mmol/L (6-16); Blood Urea Nitrogen 9 mg/dL (8-24); Bun/Creatinine Ratio 16.4 (12.0-20.0); CO2, Blood 25 mmol/L (21-32); Calcium, Blood 8.6 mg/dL (8.5-10.1); Chloride, Blood 107 mmol/L (98-108); Creatinine, Blood 0.55 mg/dL (0.60-1.20); Glomerular Filtration Rate >60 (60-); Glucose, Blood 202 mg/dL (70-99); Potassium, Blood 3.8 mmol/L (3.5-5.5); Sodium, Blood 138 mmol/L (136-145)
--- NOTE | 2020-09-20 06:10 | NUR ---
SHIFT SUMMARY PT REMAINS A&OX4. WHILE ASSISTING PT BACK TO BED DURING TRANSFER FROM COMMODE, PT STATES "I KNOW IT IS NOT REALLY THERE, BUT I SAW A BIRD AT THE DOOR". DAY SHIFT NURSE STATED PTS TEMPERATURE HAS BEEN CORRELATING WITH MILD CONFUSION. TEMPORAL TEMPERATURE CHECKED, TEMP OF 99.9. MEDICATED c PRN ADVIL IN APPLESAUCE, TOLERATING PO MEDS WELL. REQUESTING "REAL FOOD". O2 REMAINS @ 3LPM VIA NC c SATS >90%. PT USING BEDSIDE COMMODE, TWO BOWEL MOVEMENTS LAST NIGHT. NO OTHER SIGNIFICANT CHANGES IN PT CONDITION. WILL CONTINUE TO MONITOR CLOSELY. REPORT TO ONCOMING NURSE.
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
--- NOTE | 2020-09-20 08:30 | NUR ---
PT REMAINS CONFUSED, AGITATED, AND PARANOID. PT NOT COOPERATIVE WITH CARE. DR. CURTIS HAS PLACED PT ON INVOLUNTARY HOLD.
--- NOTE | 2020-09-20 09:44 | NUR ---
KATYA AND PASTORA AT BEDSIDE X 1 HOUR. CIVIL RIGHT READ TO PT, BUT PT REFUSING TO SIGN. PT ENCOURAGED TO GET BACK TO BED FOR SAFETY. PT REFUSING. PRECEDEX DRIP STARTED @ 0902-STARTED @ 0.7 MCG/KG/MIN. PT STILL AGITATED, CONFUSED, AND NONCOOPERATIVE. PRECEDEX DRIP TITRATED UP TO 1.4 MCG/KG/MIN PER DR. CURTIS ORDER. PT FINALLY AMBULATED BACK TO BED. INCONTINENT OF URINE AND STOOL. PT REFUSING TO ALLOW STAFF TO CLEAN HIM UP. PT STATES "NOT UNTIL YOU PAY FOR MY GLASSES THAT YOU BROKE AND BUY ME NEW UNDERWEAR." PT MED WITH ZYPREXA 10 MG IM X 1 HE CONTINUED TO BE AGITATED, PARANOID AND NONCOOPERATIVE-DESPITE THE PRECEDEX @ 1.4 MCG/KG/MIN.
--- NOTE | 2020-09-20 10:15 | NUR ---
PT RESTING QUIETLY WITH PRECEDEX DRIP @ 1.4 MCG/KG/MIN. HOWEVER, MAP TRENDING LESS THAN 50. DR. CURTIS NOTIFIED-NS 1000 ML BOLUS INITIATED. NS @ 125 CC/HR TO BE INITIATED AFTER THE BOLUS-PRECEDEX ON STANDBY.
--- NOTE | 2020-09-20 11:32 | NUR ---
PT AWAKENS TO VOICE. ABLE TO TURN SIDE TO SIDE FOR ATTENDS CHANGE. PT OFFERED WATER OF JUICE-PT STATES"NO." PICC LINE WAS POSITIONAL AND NS BOLUS INTERUPTED SEVERAL TIMES A RESULT. PICC DRESSING CHANGED AND BOLUS RESUMED. AMOL AREA VERY RED/EXCORIATED- NYSTATIN CREAM APPLIED.
--- NOTE | 2020-09-20 12:30 | NUR ---
MAP TRENDING LESS THAN 60 WITH NS @ 125 CC/HR. DR. CURTIS MADE AWARE AND ADDITIONAL 1 LITER BOLUS OF NS ORDERED AND INITIATED. PT AMOL AREA VERY RED AND EXCORIATED FROM URINARY AND BOWEL INCONTINENCE-ORDER OBTAIN FOR GROSSMAN CATHETER PLACEMENT. PT VERY AGITATED AND COMBATIVE. HE DID COMPLY WITH TAKING ZYPREXA ZYDIS. #16 FR GROSSMAN PLACED-TOLERATED POORLY-U/A SENT PER GROSSMAN INSERTION PROTOCOL.
[2020-09-20 13:09] LABS: Source, Urine Catheter
--- NOTE | 2020-09-20 13:45 | NUR ---
KATYA, BRAND PLANNER IN ROOM. PT VERY AGITATED, CONFUSED, THREATENING STAFF. PT AGAIN INSISTENT THAT HE IS "GOING HOME!" SBP TRENDING IN THE 130'S-PRECEDEX DRIP STARTED AT 0.7 MCG/KG/MIN.
[2020-09-20 13:57] LABS: Appearance, Urine Hazy (Clear); Bilirubin, Urine Neg (Neg); Blood, Urine Neg (Neg); Color, Urine Yellow (P-Yellow); Glucose Qualitative, Urine 1+ (Neg); Ketones, Urine Neg (Neg); Leukocyte Esterase, Urine 1+ (Neg); Nitrite, Urine Neg (Neg); Protein, Urine 1+ (Neg); Specific Gravity, Urine 1.015 (1.003-1.022); Urobilinogen, Urine 1+ (Normal)
--- NOTE | 2020-09-20 14:00 | NUR ---
PT REMAINS CONFUSED, AGITATED, THREATENING STAFF-FISTS DOUBLED UP. PT NOT FOLLOWING COMMANDS. PT PULLING ON LINES AND TUBES. PRECEDEX TITRATED UP TO 1.4 MCG/KG/MIN, WITH MINIMAL IMPROVEMENT. DR. CURTIS UPDATED-ORDER GIVEN FOR ZYPREXA 10 MG IM X 1. SOFT WRIST RESTRAINTS PLACED BILATERALLY FOR PT SAFETY. PRECEDEX DRIP TITRATED DOWN TO 0.5 MCG/KG/MIN AFTER THE ZYPREXA WAS GIVEN AND THE RESTRAINTS PLACED.
[2020-09-20 14:04] LABS: Red Blood Cells, Urine Not Seen /hpf (0-2); Squamous Epithelial Cells Rare /hpf (Few); White Blood Cells, Urine 25-50 /hpf (0-5)
[2020-09-20 14:05] LABS: Bacteria Mod /hpf
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
--- NOTE | 2020-09-20 17:30 | NUR ---
PT SLEEPS WHEN NOT DISTURBED ON PRECEDEX @ 0.2 MCG/KG/MIN. AWAKENS TO VOICE AND BECOMES IMMIDIATELY AGITATED AND BEGINS THRASHING IN THE BED & PULLING ON RESTRAINTS. PT NOT FOLLOWING ANY COMMANDS.MAP TRENDING 60-70'S. PT OFFERED SIPS OF FLUIDS, BUT HAS REFUSED. PT MADE NPO HE IS CONFUSED AND NOT FOLLOWING COMMANDS. DR. CURTIS MADE AWARE-UPDATED TO CURRENT VS AND STATUS. CBG 83-ORDER FOR D5NS @ 125 CC/HR PLACED.
--- NOTE | 2020-09-20 21:15 | NUR ---
ASSUMPTION OF CARE ASSUMED CARE OF PT @ 1830, PT RESTING IN BED, AROUSES TO VERBAL STIMULI, ORIENTED TO SELF, CITY, AND YEAR, WAS UNSURE OF FACILITY/HOSPITAL, PT FOLLOWING COMMANDS. PT SPOKE WITH PTS DAUGHTER OVER THE PHONE, PT CONTINUES TO HAVE MILD PARANOIA/CONFUSING, STS HE IS IN A FACILITY WITH 600 BEDS AND ONLY 1 NURSE. DISCUSSED REASONS RELATED TO RESTRAINTS, PT CALM AND COOPERATIVE, AND UNDERSTANDS REASON FOR RESTRAINT APPLICATION, RESTRAINTS REMOVED AT BEGINNING OF SHIFT. PT ON 2-4L PER NC TO MAINTAIN O2 SATURATIONS. MONITOR SHOWS ATRIAL PACED RHYTHM, HR 70'S-80'S, BP STABLE. PRECEDEX INF @ 0.2mcg/kg/hr. GROSSMAN IN PLACE WITH GOOD OUTPUT. PT DENIES ANY OTHER NEEDS AT THIS TIME.
[2020-09-21 05:44] LABS: BASOPHILS ABSOLUTE AUTO 0.02 K/mm3 (0.00-0.23); BASOPHILS PERCENT AUTO 1 % (0-2); EOSINOPHILS ABSOLUTE AUTO 0.21 K/mm3 (0.00-0.68); EOSINOPHILS PERCENT AUTO 7 % (0-6); Hematocrit 33.9 % (37.0-53.0); Hemoglobin 11.1 g/dL (13.5-17.5); IMMATURE GRAN ABSOLUTE AUTO 0.01 K/mm3 (0.00-0.10); IMMATURE GRAN PERCENT AUTO 0 % (0-1); LYMPHOCYTES ABSOLUTE AUTO 1.01 K/mm3 (0.84-5.20); LYMPHOCYTES PERCENT AUTO 33 % (21-46); MONOCYTES ABSOLUTE AUTO 0.36 K/mm3 (0.16-1.47); MONOCYTES PERCENT AUTO 12 % (4-13); Mean Corpuscular HGB 33.6 pg (26.0-34.0); Mean Corpuscular HGB Conc 32.7 g/dL (31.5-36.5); Mean Corpuscular Volume 103 fL (80-100); Mean Platelet Volume 10.1 fL (9.1-12.4); NEUTROPHILS ABSOLUTE AUTO 1.45 K/mm3 (1.96-9.15); NEUTROPHILS PERCENT AUTO 47 % (41-73); Platelet Count 135 K/mm3 (150-400); RDW Coefficient Variation 12.8 % (11.7-14.2); RDW Standard Deviation 48.1 fL (35.1-46.3); White Blood Cell Count 3.06 K/mm3 (4.00-11.30)
[2020-09-21 05:58] LABS: Anion Gap 4 mmol/L (6-16); Blood Urea Nitrogen 6 mg/dL (8-24); Bun/Creatinine Ratio 10.5 (12.0-20.0); CO2, Blood 27 mmol/L (21-32); Calcium, Blood 7.8 mg/dL (8.5-10.1); Chloride, Blood 114 mmol/L (98-108); Creatinine, Blood 0.57 mg/dL (0.60-1.20); Glomerular Filtration Rate >60 (60-); Glucose, Blood 145 mg/dL (70-99); Potassium, Blood 3.5 mmol/L (3.5-5.5); Sodium, Blood 145 mmol/L (136-145)
--- NOTE | 2020-09-21 06:13 | NUR ---
SHIFT SUMMARY PT RESTED WELL T/O THE NIGHT, AROUSES TO VERBAL STIMULI, PT FRUSTRATED AT TIMES BUT REMAINS CALM AND COOPERATIVE. ZYPREXA x1 THIS SHIFT FOR AGITATION WITH GOOD EFFECT, PRECEDEX ON SB SINCE 399. PT ON 2L PER NC TO MAINTAIN O2 SATURATIONS> 90%, MONITOR SHOWS ATRIAL PACED RHYTHM WITH HR 70'S-80'S, BP LABILE WITH SLEEPING AND WAKE CYCYLE BUT MAPS MAINTAIN> 65. DURING NURSE ROUNDING THIS SHIFT, PT WAS FOUND TO BE EATING APPLESAUCE AND DRINKING THICKENED APPLE JUICE, RN TO ROOM, SAT PT UP IN BED, PT HAD ALREADY FINISHED FOOD/DRINK WHEN RN TO ROOM, PT TOLERATED WELL, NO SIGNS OF RESP DISTRESS AND NO INCREASED OXYGEN NEEDS. NO BM THIS SHIFT. GROSSMAN REMAINS IN PLACE WITH GOOD URINE OUTPUT. PT MOVES ALL EXTREMETIES AND IS ABLE TO MAKE SMALL REPOSITIONS IN BED. CALL LIGHT WITHIN REACH, PT USING APPROPRIATELY.
--- NOTE | 2020-09-21 08:00 | NUR ---
PT A&OX4 REPORTS 12/23 HIP PAIN. TEMP 100.0 PT FACE AND CHEST FLUSHED/RED. MED WITH IBUPROFEN PO FOR PAIN AND ELEVATED TEMP-SEE EMAR. VS WDL. LUNGS DIMINISHED IN THE BASES. NO NOTED COUGH OR SOB AT REST. SATS>90% ON 2 LITERS NASAL CANULA. SPOT CHECK DONE ON RA-SATS DROPPED TO 82%, BUT QUICKLY RETURNED TO >90% ON NASAL CANULA REPLACED. CBG 108-NO COVERAGE REQUIRED. PT TOLERATING PUREED DIET WELL. ATE 100% OF BREAKFAST AND TOOK MED WITHOUT SIGNS OF ASPIRATION. STOOL SOFTENER HELD DUE TO LOOSE STOOLS. D5 NS DECREASED TO 100 CC/HR PER DR. FLYNN. GROSSMAN WITH MODERATE AMOUNT OF DARK, YELLOW URINE TO BSD. AMOL AREA REMAINS RED AND EXCORIATED, BUT APPEARS BETTER THAN 09/20/20. PT IS BACK TO PCU STATUS. PLAN FOR PT/OT TODAY-DISCHARGE PLANNING TO ASSIST PT WITH HOME OXYGEN AND PT TO HAVE DR. IVY EVALUATION 09/22/20-WILL UPDATE PT DAUGHTER TO PLAN OF CARE. PT IN AGREEMENT WITH CURRENT PLAN OF CARE AT THIS TIME, BUT REMAINS ON A INVOLUNTARY HOLD.
--- NOTE | 2020-09-21 10:14 | NUR ---
PT REQUESTED "A SANDWICH." PT REMINDED THAT HE IS CURRENTLY ON A PUREE DIET PER SPEECH THERAPY. ATTEMPTED TO CONTACT SPEECH THERAPY TO SEE IF PT COULD BE RE-EVALUATED TO ADVANCE TO REGULAR CONSISTENCY DIET. HOWEVER, SPEECH THERAPY NOT AVAILABLE TODAY. PT AGREES TO BE RE-EVALUATED BY SPEECH THERAPY TOMORROW. REQUESTED "TOMATO SOUP IN A MUG." TN ORDER PLACED FOR TOMATO SOUP IN A MUG.
--- NOTE | 2020-09-21 11:53 | NUR ---
PT REMAINS A&OX4. COOPERATIVE WITH CARE. AFEBRILE-VS WDL. PT GIVEN BED BATH, THEN ASSISTED OOB TO CHAIR WITH ONE PERSON MODERATE ASSIST-USING GAIT BELT AND WALKER. PT INSISTED TO AMBULATE WHILE ON RA. PT ABLE TO MAKE IT TO THE CHAIR, BUT WAS VERY TACHYPNEIC/DYSPNEIC AND SATS DROPPED TO 72% PT COOPERATIVE WITH REPLACING THE O2 @ 2 LITERS-SATS RETURNED TO >90% AFTER SEVERAL MINUTES REST AND PURSED LIP BREATHING. PT SITTING UP IN THE CHAIR, FEEDING HIMSELF LUNCH-WITHOUT NOTED DISTRESS. CBG 182 COVERED PER SLIDING SCALE-SEE EMAR.
--- NOTE | 2020-09-21 16:00 | NUR ---
TEMP 101.4-MED WITH IBUPROFEN PO-SEE EMAR. OTHER VS WDL. PT SOB WITH EXERTION, BUT MAINTAINS SATS<90% ON 2 LITERS NASAL CANULA. PT TOLERATING DIET WELL, BUT VERBALIZES THAT HE IS HOPEFUL TO ADVANCE HIS DIET ALYSSA. NO SIGNS OF ASPIRATION. PT HAS BEEN UTILIZING CALL SYSTEM TO REQUEST HELP AND IS COMMUNICATING HIS NEEDS WELL. PT IS VERY PLEASANT AND COOPERATIVE WITH CARE.
--- NOTE | 2020-09-22 01:04 | NUR ---
THIS LN GAVE ZYPREXA 5MG PO FOR ANXIETY AT 1258 AM, WHEN SCANNING MEDICATION IT WOULDN'T SCAN FOR PRN ONLY WOULD CHOOSE THE SCHEDULED MEDICATION, THIS WAS GIVEN A PRN.
[2020-09-22 03:58] LABS: BASOPHILS ABSOLUTE AUTO 0.02 K/mm3 (0.00-0.23); BASOPHILS PERCENT AUTO 1 % (0-2); EOSINOPHILS ABSOLUTE AUTO 0.25 K/mm3 (0.00-0.68); EOSINOPHILS PERCENT AUTO 7 % (0-6); Hemoglobin 11.2 g/dL (13.5-17.5); IMMATURE GRAN ABSOLUTE AUTO 0.01 K/mm3 (0.00-0.10); IMMATURE GRAN PERCENT AUTO 0 % (0-1); LYMPHOCYTES ABSOLUTE AUTO 1.55 K/mm3 (0.84-5.20); LYMPHOCYTES PERCENT AUTO 42 % (21-46); MONOCYTES ABSOLUTE AUTO 0.48 K/mm3 (0.16-1.47); MONOCYTES PERCENT AUTO 13 % (4-13); Mean Corpuscular HGB 33.3 pg (26.0-34.0); Mean Corpuscular HGB Conc 32.9 g/dL (31.5-36.5); Mean Corpuscular Volume 101 fL (80-100); NEUTROPHILS ABSOLUTE AUTO 1.42 K/mm3 (1.96-9.15); NEUTROPHILS PERCENT AUTO 38 % (41-73); Platelet Count 148 K/mm3 (150-400); RDW Coefficient Variation 12.9 % (11.7-14.2); RDW Standard Deviation 47.8 fL (35.1-46.3); Red Blood Cell Count 3.36 M/mm3 (4.30-5.90); White Blood Cell Count 3.73 K/mm3 (4.00-11.30)
--- NOTE | 2020-09-22 13:44 | NUR ---
09/22/20- per chart review with Dr. Sánchez, pt has been placed on 2 MD hold due to trying to leave AMA yesterday and not fully understanding his care needs. Pt has had a fever within the last 24 hrs. 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 Pt would benefit from SNF if he is agreeable. No plans for d/c at this time. -liliam
--- NOTE | 2020-09-22 18:38 | NUR ---
SHIFT SUMMARY VSS THOUGHOUT SHIFT. O2 AT 2L NC WITH SATS MID 90S. PATIENT EXPERIENCING OCCASIONAL CONFUSIONS BUT IS EASILY REDIRECTED AND REORIENTED. DR. IVY VISTED THE PATIENT TODAY AND IS KEEPING 2MD HOLD IN PLACE UNTIL PATIENT IS SAFE TO DISCHARGE BY HOSPITALISTS. PATIENT IS AGITATED BY THIS DECISION AND IS "GOING TO LEAVE TOMORROW NO MATTER WHAT". PRIMARY RN EXPLAINED THE HOLD TO THE PATIENT AND PATIENT'S DAUGHTER AND PATIENT WAS ABLE TO DEESCALATE.
--- NOTE | 2020-09-22 19:30 | NUR ---
CALLED BY REMOTE MONITORING-PT ATTEMPT TO GET UP OOB, CERTIFIED PROSTHETIST TO ROOM. PT UPSET, WANTING TO LEAVE. DISCUSSED MEDS WITH PT, GIVEN PER MAR. PT SETTLED DOWN, REFUSED CARE, BED WET, PT REFUSED TO CHANGE BED, TALKED PT INTO ATLEAST SITTING ON PAD. PT VITALS DONE, NOTED. CONTINUE ASSESSMENT AND CARE TOLERATED.
--- NOTE | 2020-09-22 19:55 | NUR ---
STUDENT NURSE NOTES/CHARTING REVIEWED BY PRIMARY RN. PT AT TIMES WOULD BE AGITATED WITH STAFF AND WOULD FREQUENTLY CALL HIS DAUGHTER ANGRY. EDUCATED PT AND FAMILY ON ASPECTS OF THE HOLD IN PLACE AND PLAN OF CARE. EDUCATED PT THAT HE REQUIRES RESOURCES TO BE IN PLACE PRIOR TO DISCHARGING SAFELY FROM HOSPITAL. AT TIMES PT WOULD REFUSE ASPECTS OF HIS CARE, PT WOULD BE EDUCATED ON IMPORTANCE OF MEDICATIONS/CARE THAT HE WAS REFUSING.
--- NOTE | 2020-09-23 02:24 | NUR ---
ASSESS PT AWAKE, ASKING FOR BREAKFAST. C/O 10 OUT OF 10 PAIN RT HIP/BACK. MEDS PER JUL. PT REFUSED BED CHANGE. VITALS DONE AND NOTED. CONTINUE ASSESSMENT AND CARE.
--- NOTE | 2020-09-23 04:41 | NUR ---
assess PT AWAKE, RESTLESS, REFUSES MOST CARE. ON 2 L N/C, SATS 92%.BS: GLOTTIC WHEEZES ON AND OFF T/O SHIFT. MEDS GIVEN PER MAR THIS SHIFT. GROSSMAN OUTPUT 3100. PICC DOES NOT DRAW BLLOD, LAB IN ROOM FOR AM LABS. CONTINUE ASSESSMENT AND CARE.
[2020-09-23 04:51] LABS: BASOPHILS ABSOLUTE AUTO 0.02 K/mm3 (0.00-0.23); BASOPHILS PERCENT AUTO 1 % (0-2); EOSINOPHILS ABSOLUTE AUTO 0.31 K/mm3 (0.00-0.68); EOSINOPHILS PERCENT AUTO 8 % (0-6); Hematocrit 36.1 % (37.0-53.0); Hemoglobin 11.9 g/dL (13.5-17.5); IMMATURE GRAN ABSOLUTE AUTO 0.02 K/mm3 (0.00-0.10); IMMATURE GRAN PERCENT AUTO 1 % (0-1); LYMPHOCYTES PERCENT AUTO 42 % (21-46); MONOCYTES ABSOLUTE AUTO 0.45 K/mm3 (0.16-1.47); MONOCYTES PERCENT AUTO 12 % (4-13); Mean Corpuscular Volume 100 fL (80-100); Mean Platelet Volume 9.6 fL (9.1-12.4); NEUTROPHILS ABSOLUTE AUTO 1.37 K/mm3 (1.96-9.15); NEUTROPHILS PERCENT AUTO 37 % (41-73); Platelet Count 147 K/mm3 (150-400); RDW Coefficient Variation 12.5 % (11.7-14.2); RDW Standard Deviation 46.5 fL (35.1-46.3); Red Blood Cell Count 3.61 M/mm3 (4.30-5.90); White Blood Cell Count 3.77 K/mm3 (4.00-11.30)
[2020-09-23 05:12] LABS: Alanine Aminotransfer (ALT/SGP 66 U/L (12-78); Albumin, Blood 2.5 g/dL (3.4-5.0); Albumin/Globulin Ratio 0.6 (0.8-1.8); Alk Phos 314 U/L (50-136); Anion Gap 3 mmol/L (6-16); Aspartate Aminotrans (AST/SGOT 56 U/L (12-37); Bilirubin, Total 1.3 mg/dL (0.1-1.0); Blood Urea Nitrogen 5 mg/dL (8-24); Bun/Creatinine Ratio 7.3 (12.0-20.0); CO2, Blood 30 mmol/L (21-32); Calcium, Blood 8.4 mg/dL (8.5-10.1); Chloride, Blood 106 mmol/L (98-108); Creatinine, Blood 0.68 mg/dL (0.60-1.20); Globulin, Blood 3.9 g/dL (2.2-4.0); Glomerular Filtration Rate >60 (60-); Glucose, Blood 101 mg/dL (70-99); Potassium, Blood 3.5 mmol/L (3.5-5.5); Sodium, Blood 139 mmol/L (136-145); Total Protein, Blood 6.4 g/dL (6.4-8.2)
--- NOTE | 2020-09-23 12:00 | NUR ---
REASSESSMENT PATIENT UP TO CHAIR FOR BREAKFAST AND LUNCH. VITAL SIGNS STABLE. HR SINUS IN THE 90S. REQUIRING 2L NC AT REST SATS ABOVE 92%. PATIENT SEEMS ILL CONCERNED ABOUT RASH IN AMOL AREA, REFUSING MEDICATED CREAM. HOME O2 EVALUATION COMPLETED TODAY. AWAITING DISCHARGE PLANNING.
--- NOTE | 2020-09-23 13:50 | NUR ---
PT CALLS REQUESTING PAIN MEDICATION FOR HIS HIP, ASKED IF HE WOULD LIKE TYLENOL OR IBUPROFEN, STATES HE GOT SOMETHING STRONGER IN THE NIGHT. REMINDED THAT HE WOULDN'T BE ABLE TO TAKE FENTANYL AT HOME, HE SAID, "I'M NOT DRIVING!" 25MCG FENTANYL GIVEN.
[2020-09-23] MEDS ORDERED: FOLI1 PO (15:56)
[2020-09-23] MEDS ORDERED: ASPI81CH PO (15:56)
[2020-09-23] MEDS ORDERED: NYSTATIN15 GM TOP (15:57)
[2020-09-23] MEDS ORDERED: B-1100 M1 PO (15:57)
[2020-09-23] MEDS ORDERED: OLAN5 PO (15:57)
--- NOTE | 2020-09-23 16:31 | NUR ---
09/23/201606 Discussed care with patient's daughter Nohemi. Dr. Sánchez requesting a discussion occur regarding SNF placement. PT. advising pt. would benefit from PT within SNF due to deconditioning from prison hospitalization. Pt. would also benefit from SNF staff consistently checking his SPO2 and titrating O2 as indicated. Patient's daughter discussed with patient. He declined SNF. Pt. and daughter were advised of the potential concerns regarding discharge home and fully understood the benefit of SNF. Daughter is home 06/12 and feels that she can take care of him at this time. Home health was ordered. Keyla from [facility] will discuss further with patient's daughter. Discharge plan reviewed with ICU nurse Susanne. Patient is anticipated to be discharged this evening. Daughter Nohemi advised to call with any questions or concerns. Order for shower chair also placed through [facility]. Chi with [facility] will be assisting with O2 home set-up prior to discharge. - AUSTIN
--- NOTE | 2020-09-23 17:23 | NUR ---
SHIFT SUMMARY VSS THROUGH OUT SHIFT. PATIENT ON 2L NC, SATS MID 90S. GROSSMAN REMOVED THIS AFTERNOON. AWAITING ARRIVAL OF DAUGHTER TO GO OVER DISHARGE PLANS INCLUDING HOME HEALTH, HOME OXYGEN AND NEW HOME MEDICATIONS.
--- NOTE | 2020-09-23 18:34 | NUR ---
DISCHARGE PATIENT AND DAUGHTER WERE EDUCATED ABOUT DISCHARGE AND WERE PROVIDED WITH DISCHARGE INFORMATION AND PAPERWORK BY PRIMARY RN. PATIENT DISCHARGING WITH HOME O2 OF 2L NC. PATIENT DISCHARGED VIA WHEELCHAIR.
== END 2020-09-23 19:14 | disposition home or self-care (01) | DRG 870 ==
LOC: ER 18:13 → ICUE 21:09 → ERHOLD 21:09 → ICUE 09-04 00:45
PROVIDERS: Family Medicine; Internal Medicine Critical Care Medicine; Internal Medicine Pulmonary Disease; Student in an Organized Health Care Education/Training Program; ADMIT Internal Medicine
PROC: 5A09357 Assistance with Respiratory Ventilation, Less than 24 Consecutive Hours, Continuous Positive Airway Pressure (ICD-10-PCS; 2020-09-03)
PROC: 8E0ZXY6 Isolation (ICD-10-PCS; 2020-09-03)
PROC: 5A1955Z Respiratory Ventilation, Greater than 96 Consecutive Hours (ICD-10-PCS; principal; 2020-09-04)
PROC: 3E0333Z Introduction of Anti-inflammatory into Peripheral Vein, Percutaneous Approach (ICD-10-PCS; 2020-09-04)
PROC: XW033E5 Introduction of Remdesivir Anti-infective into Peripheral Vein, Percutaneous Approach, New Technology Group 5 (ICD-10-PCS; 2020-09-04)
PROC: 3E033XZ Introduction of Vasopressor into Peripheral Vein, Percutaneous Approach (ICD-10-PCS; 2020-09-04)
PROC: 02HV33Z Insertion of Infusion Device into Superior Vena Cava, Percutaneous Approach (ICD-10-PCS; 2020-09-04)
PROC: 0BH18EZ Insertion of Endotracheal Airway into Trachea, Via Natural or Artificial Opening Endoscopic (ICD-10-PCS; 2020-09-04)
PROC: 02HV33Z Insertion of Infusion Device into Superior Vena Cava, Percutaneous Approach (ICD-10-PCS; 2020-09-12)
PROC: 5A09457 Assistance with Respiratory Ventilation, 24-96 Consecutive Hours, Continuous Positive Airway Pressure (ICD-10-PCS; 2020-09-17)
DX: A41.89 Other specified sepsis (principal); U07.1 COVID-19; J12.82 Pneumonia due to coronavirus disease 2019; J96.21 Acute and chronic respiratory failure with hypoxia; J15.211 Pneumonia due to Methicillin susceptible Staphylococcus aureus; F10.10 Alcohol abuse, uncomplicated; F41.1 Generalized anxiety disorder; R44.1 Visual hallucinations; F43.0 Acute stress reaction; E87.6 Hypokalemia; E11.22 Type 2 diabetes mellitus with diabetic chronic kidney disease; G47.33 Obstructive sleep apnea (adult) (pediatric); J44.9 Chronic obstructive pulmonary disease, unspecified; E66.9 Obesity, unspecified; Z88.8 Allergy status to other drugs, medicaments and biological substances; I25.2 Old myocardial infarction; Z95.0 Presence of cardiac pacemaker; I12.9 Hypertensive chronic kidney disease with stage 1 through stage 4 chronic kidney disease, or unspecified chronic kidney disease; K21.9 Gastro-esophageal reflux disease without esophagitis; Z79.899 Other long term (current) drug therapy; E78.00 Pure hypercholesterolemia, unspecified; Z79.4 Long term (current) use of insulin; I49.5 Sick sinus syndrome; I25.10 Atherosclerotic heart disease of native coronary artery without angina pectoris; Z68.34 Body mass index [BMI] 34.0-34.9, adult; L27.0 Generalized skin eruption due to drugs and medicaments taken internally; M13.0 Polyarthritis, unspecified
CPT/HCPCS: 31500; 36415; 36556; 36569; 36600; 51702; 71045; 76882; 80048; 80053; 80069; 80202; 81001; 82248; 82330; 82565; 82803; 82947; 83605; 83735; 83880; 84100; 84145; 84484; 84550; 85025; 85379; 86140; 87040; 87070; 87077; 87102; 87185; 87186; 87205; 92526; 92610; 93005; 93010; 93306; 93970; 94002; 94003; 94640; 94660; 94761; 96372-59; 96374; 96375; 97110; 97116; 97162; 97166; 97530; 97535; 99285-25; A9270; C1751; C9113; J0330; J0690; J0696; J1100; J1650; J1940; J2060; J2250; J2700; J2704; J3010; J3370; J3480; J7030; J7042; J7050; J7060; J7120

== ENCOUNTER 2025-01-01 11:02 | Inpatient (IN) | payer OTHER ==
[~2025-01-01] VITALS: Ht 177.8 cm; Wt 100.2 kg
[~2025-01-01 11:02] MED LIST changes: +ASPI81CH PO; +B-1100 M1 PO; +BASAGLAR K100 UNIT/3 SC; -BASAGLAR K100 UNIT/5 SC; +FOLI1 PO; -METO25 PO; +METO25ER PO; +NYSTATIN15 GM TOP; +OLAN5 PO
[2025-01-01 11:26] LABS: BASOPHILS ABSOLUTE AUTO 0.01 K/mm3 (0.00-0.23); BASOPHILS PERCENT AUTO 1 % (0-2); EOSINOPHILS ABSOLUTE AUTO 0.04 K/mm3 (0.00-0.68); EOSINOPHILS PERCENT AUTO 2 % (0-6); Hematocrit 31.8 % (37.0-53.0); Hemoglobin 11.3 g/dL (13.5-17.5); IMMATURE GRAN ABSOLUTE AUTO 0.01 K/mm3 (0.00-0.10); IMMATURE GRAN PERCENT AUTO 1 % (0-1); LYMPHOCYTES ABSOLUTE AUTO 0.63 K/mm3 (0.84-5.20); LYMPHOCYTES PERCENT AUTO 33 % (21-46); MONOCYTES ABSOLUTE AUTO 0.24 K/mm3 (0.16-1.47); MONOCYTES PERCENT AUTO 13 % (4-13); Mean Corpuscular HGB Conc 35.5 g/dL (31.5-36.5); Mean Corpuscular Volume 98 fL (80-100); NEUTROPHILS ABSOLUTE AUTO 0.97 K/mm3 (1.96-9.15); NEUTROPHILS PERCENT AUTO 51 % (41-73); NRBC ABSOLUTE 0.02 K/mm3 (0.00-0.02); NRBC Auto 1.1 /100 WBC (0.0-0.2); RDW Coefficient Variation 12.7 % (11.7-14.2); RDW Standard Deviation 45.7 fL (35.1-46.3)
[2025-01-01] MEDS ORDERED: NS 1,000 ML IV SCH ×2 (11:40→17:35)
[2025-01-01 11:43] LABS: Platelet Count 46 K/mm3 (150-400)
[2025-01-01 11:54] LABS: Alanine Aminotransfer (ALT/SGP 19.0 U/L (12-78); Albumin, Blood 2.5 g/dL (3.4-5.0); Albumin/Globulin Ratio 0.8 (0.8-1.8); Anion Gap 1.0 mmol/L (3-11); Aspartate Aminotrans (AST/SGOT 30.0 U/L (12-37); Bilirubin, Total 2.0 mg/dL (0.1-1.0); Blood Urea Nitrogen 12.0 mg/dL (8-24); CO2, Blood 28.0 mmol/L (21-32); Calcium, Blood 7.5 mg/dL (8.5-10.1); Chloride, Blood 107.0 mmol/L (98-108); Creatinine, Blood 1.0 mg/dL (0.60-1.20); Globulin, Blood 3.1 g/dL (2.2-4.0); Glucose, Blood 243.0 mg/dL (70-99); Magnesium, Blood 1.7 mg/dL (1.6-2.4); Phosphorus, Blood 4.0 mg/dL (2.5-4.9); Potassium, Blood 3.8 mmol/L (3.5-5.5); Sodium, Blood 132.0 mmol/L (136-145); Total Protein, Blood 5.6 g/dL (6.4-8.2)
[2025-01-01] MEDS ORDERED: Vancomycin (Pharmacy Consult) IV PRN (14:00)
[2025-01-01] MEDS ORDERED: Piperacillin/Tazobactam Sod 2.25 GM in NS 50 ML IV ONE (14:00)
[2025-01-01 14:13] LABS: Hematocrit 34.0 % (37.0-53.0); Hemoglobin 11.8 g/dL (13.5-17.5)
[2025-01-01] MEDS ORDERED: Vancomycin HCL 2,500 MG in NS 500 ML IV ONE (14:15)
[2025-01-01 15:18] LABS: Source, Urine Clean Catch
[2025-01-01 15:29] LABS: Bilirubin, Urine Neg (Neg); Color, Urine Yellow (P-Yellow); Glucose Qualitative, Urine 4+ (Neg); Ketones, Urine Neg (Neg); Leukocyte Esterase, Urine Neg (Neg); Protein, Urine 1+ (Neg); Specific Gravity, Urine 1.015 (1.003-1.022); Urobilinogen, Urine 2+ (Normal)
[2025-01-01] MEDS ORDERED: Magnesium Sulf 2 GM/Water 50ML 50 ML IV ONE (15:40)
[2025-01-01 16:11] LABS: Influenza A, PCR NEGATIVE (NEGATIVE); Influenza B, PCR NEGATIVE (NEGATIVE); Resp Syncytial Virus, PCR NEGATIVE (NEGATIVE); SARS-Cov-2 (COVID-19) PCR, MMC NEGATIVE (NEGATIVE)
[2025-01-01] MEDS ORDERED: Ondansetron HCl 2 MG / ML 2ML Vial IV PRN (16:25)
[2025-01-01] MEDS ORDERED: Insulin Human Lispro 100 Units/ML 3ML Syringe SC SCH (16:30)
[2025-01-01] MEDS ORDERED: NITROGLYCERIN0.4 M3 SL (16:39)
[2025-01-01] MEDS ORDERED: TAMSULOSIN HCL0.4 M1 PO (16:44)
[2025-01-01] MEDS ORDERED: HYDROcodone 5-APAP 325 TAB PO PRN (16:45)
[2025-01-01] MEDS ORDERED: GLIPIZIDE XL10 MG PO (16:45)
[2025-01-01] MEDS ORDERED: TORS10 PO (16:46)
[2025-01-01] MEDS ORDERED: SITA100T2 PO (16:46)
[2025-01-01] MEDS ORDERED: EZETIMIBE10 M1 PO (16:48)
[2025-01-01] MEDS ORDERED: GABA300 PO (16:48)
[2025-01-01] MEDS ORDERED: FERSU300 PO (16:49)
[2025-01-01] MEDS ORDERED: LACT10SY PO (16:50)
[2025-01-01] MEDS ORDERED: MUPIROCIN1 G1 (19:22)
[2025-01-01] MEDS ORDERED: ONDA4ODT MM (19:25)
[2025-01-01] MEDS ORDERED: OXYC10ER PO (19:26)
[2025-01-01] MEDS ORDERED: NALOXONE H0.4 MG/1 M IM (19:27)
[2025-01-01 19:46] VITALS: BP 118/66
[2025-01-01 23:37] VITALS: BP 103/60
[2025-01-02 03:40] VITALS: BP 98/61
[2025-01-02 06:37] LABS: BASOPHILS ABSOLUTE AUTO 0.01 K/mm3 (0.00-0.23); BASOPHILS PERCENT AUTO 0 % (0-2); EOSINOPHILS ABSOLUTE AUTO 0.10 K/mm3 (0.00-0.68); EOSINOPHILS PERCENT AUTO 4 % (0-6); Hematocrit 33.3 % (37.0-53.0); Hemoglobin 11.4 g/dL (13.5-17.5); IMMATURE GRAN ABSOLUTE AUTO 0.01 K/mm3 (0.00-0.10); IMMATURE GRAN PERCENT AUTO 0 % (0-1); LYMPHOCYTES ABSOLUTE AUTO 0.79 K/mm3 (0.84-5.20); LYMPHOCYTES PERCENT AUTO 29 % (21-46); MONOCYTES ABSOLUTE AUTO 0.31 K/mm3 (0.16-1.47); MONOCYTES PERCENT AUTO 11 % (4-13); Mean Corpuscular HGB Conc 34.2 g/dL (31.5-36.5); Mean Corpuscular Volume 101 fL (80-100); NEUTROPHILS ABSOLUTE AUTO 1.50 K/mm3 (1.96-9.15); NEUTROPHILS PERCENT AUTO 55 % (41-73); NRBC ABSOLUTE 0.00 K/mm3 (0.00-0.02); NRBC Auto 0.0 /100 WBC (0.0-0.2); Platelet Count 54 K/mm3 (150-400); RDW Coefficient Variation 12.9 % (11.7-14.2); RDW Standard Deviation 47.9 fL (35.1-46.3)
[2025-01-02 06:39] LABS: Prothrombin Time Results 13.1 Sec (9.7-11.5)
[2025-01-02 06:51] LABS: Alanine Aminotransfer (ALT/SGP 20.0 U/L (12-78); Albumin, Blood 2.4 g/dL (3.4-5.0); Albumin/Globulin Ratio 0.8 (0.8-1.8); Anion Gap 6.0 mmol/L (3-11); Aspartate Aminotrans (AST/SGOT 26.0 U/L (12-37); Bilirubin, Total 1.1 mg/dL (0.1-1.0); Blood Urea Nitrogen 11.0 mg/dL (8-24); CO2, Blood 26.0 mmol/L (21-32); Calcium, Blood 7.9 mg/dL (8.5-10.1); Chloride, Blood 111.0 mmol/L (98-108); Creatinine, Blood 0.78 mg/dL (0.60-1.20); Globulin, Blood 3.0 g/dL (2.2-4.0); Glucose, Blood 148.0 mg/dL (70-99); Magnesium, Blood 2.3 mg/dL (1.6-2.4); Potassium, Blood 4.0 mmol/L (3.5-5.5); Sodium, Blood 139.0 mmol/L (136-145); Total Protein, Blood 5.4 g/dL (6.4-8.2)
[2025-01-02 08:51] VITALS: BP 101/56
[2025-01-02] MEDS ORDERED: Folic Acid 1 MG TAB PO SCH (09:00)
[2025-01-02] MEDS ORDERED: Multivitamins 1 Tab PO SCH (09:00)
[2025-01-02] MEDS ORDERED: Insulin Glargine-Yfgn 100 Unit/mL 3 ML SYR SC SCH ×2 (09:00)
[2025-01-02 12:31] VITALS: BP 116/66
[2025-01-02] MEDS ORDERED: NS 250 ML IV PRN (13:40)
[2025-01-02 14:21] LABS: Albumin, Blood 2.6 g/dL (3.4-5.0); Lactate Dehydrogenase (Ld),Bld 182.0 U/L (100-240)
[2025-01-02 15:39] VITALS: BP 101/64
--- NOTE | 2025-01-02 18:48 | NUR ---
SHIFT SUMMARY PT A/OX4 AND COOPERATIVE OF CARE. PT ABLE TO EXPRESS NEEDS. PT INDEPENDENT IN BED AND CALLS WHEN NEEDING TO GET UP IN ROOM. PT SEEN BY THERAPY TODAY, SEE THERAPIST NOTE. PT BP'S IMPROVED THIS SHIFT, PT STILL REPORTS SOME SLIGHT LIGHTHEADEDNESS AT TIMES. PT EXPRESSED THAT HE IS ANXIOUS TO GO HOME. PT VSS THROUGHOUT SHIFT WITH O2 SATS IN THE 90S ON RA. PT EDUCATED ON POLYPHARMACY AND PT DAUGHTER PRESENT FOR SOME OF EDUCATION. PT VERBALIZES HIS UNDERSTANDING OF POLYPHARMACY.
[2025-01-02 20:30] VITALS: BP 103/57
[2025-01-02 23:45] VITALS: BP 104/55
[2025-01-03 04:09] LABS: Hematocrit 33.3 % (37.0-53.0); Hemoglobin 11.5 g/dL (13.5-17.5); Mean Corpuscular HGB Conc 34.5 g/dL (31.5-36.5); Mean Corpuscular Volume 100 fL (80-100); NRBC ABSOLUTE 0.00 K/mm3 (0.00-0.02); NRBC Auto 0.0 /100 WBC (0.0-0.2); Platelet Count 57 K/mm3 (150-400); RDW Coefficient Variation 13.0 % (11.7-14.2); RDW Standard Deviation 47.8 fL (35.1-46.3)
[2025-01-03 04:38] LABS: Alanine Aminotransfer (ALT/SGP 18.0 U/L (12-78); Albumin, Blood 2.6 g/dL (3.4-5.0); Albumin/Globulin Ratio 0.8 (0.8-1.8); Anion Gap 7.0 mmol/L (3-11); Aspartate Aminotrans (AST/SGOT 28.0 U/L (12-37); Bilirubin, Total 1.8 mg/dL (0.1-1.0); Blood Urea Nitrogen 10.0 mg/dL (8-24); CO2, Blood 26.0 mmol/L (21-32); Calcium, Blood 8.1 mg/dL (8.5-10.1); Chloride, Blood 108.0 mmol/L (98-108); Creatinine, Blood 0.81 mg/dL (0.60-1.20); Globulin, Blood 3.1 g/dL (2.2-4.0); Glucose, Blood 130.0 mg/dL (70-99); Potassium, Blood 4.1 mmol/L (3.5-5.5); Sodium, Blood 137.0 mmol/L (136-145); Total Protein, Blood 5.7 g/dL (6.4-8.2)
--- NOTE | 2025-01-03 06:46 | NUR ---
PT MONITORED DURING THE SHIFT.PRN PAIN MEDS GIVEN PER PT'S REQUEST ORDERED.PT ENDORSES RLQ ABDOMINAL PAIN.PT AWAKE AT THIS TIME,GIVEN PRN PAIN ME.BP STABLE WITH MAP>65. PT DENIES FURTHER NEEDS.CALL LIGHT AND PT'S ITEMS WITHIN REACH.MONITORING ONGOING PER CAREPLAN.
[2025-01-03 07:56] VITALS: BP 119/75
[2025-01-03 12:24] VITALS: BP 120/68
[2025-01-03] MEDS ORDERED: ONE DAILY ESS400 MCG PO (14:17)
[2025-01-03] MEDS ORDERED: B-1100 M1 PO (14:17)
[2025-01-03] MEDS ORDERED: MIDO5 PO (14:18)
[2025-01-03] MEDS ORDERED: ALDACTONE25 MG PO (14:19)
[2025-01-03 15:53] VITALS: BP 116/73
--- NOTE | 2025-01-03 16:02 | NUR ---
SHIFT SUMMARY PT ALERT, ORIENTED X4; BISHOP PAIUTE; COOPERATIVE WITH CARE. EDUCATED PT T/O DAY REGARDING MEDICATION AT HOMES. PT REPORTS ABD PAIN, MEDICATED PER ORDERS. PT DENIES CHEST PAIN/PRESSURE, SOB, NAUSEA, DIZZINESS AND NUMB/TINGLING. TELE PACED T/O SHIFT, BP STABLE. EDEMA NOTED TO BLE. SPO2 >90% ON RA, BREATHING EVEN AND UNLABORED. ABD DISTENDED, TENDER +BT. OTHER VSS. EDUCATED PT AND DAUGHTER REGARDING SAFE MEDICATION HANDELING;TO ONLY TAKE MEDICATIONS PRESCRIBED, NOT ALL AT ONCE; DISCUSSED USING A MEDICATION/PILL BOX WITH AM AND PM TIMES AND SETTING ALARMS TO REMIND HIM TO TAKE MEDICATIONS. DISCUSSED MEDICATIONS WITH DR BATES; REGARDING GABAPENTIN QID, CHANGED TO INCREASED AND LESS FRQUENT. PATIENT LIVING WITH DAUGHTER. DENIES NEEDING HOME HEALTH. EDUCATED ON HYPOTENSION AND SYNCOPE. PT LEFT VIA WHEELCHAIR AT 1602.
== END 2025-01-03 16:02 | disposition home or self-care (01) | DRG 312 ==
LOC: ER 11:02 → PCU 11:03
PROVIDERS: Internal Medicine; Nurse Practitioner Acute Care; Physician Assistant; ADMIT Internal Medicine
PROC: 30233J1 Transfusion of Nonautologous Serum Albumin into Peripheral Vein, Percutaneous Approach (ICD-10-PCS; principal; 2025-01-02)
PROC: 3E03329 Introduction of Other Anti-infective into Peripheral Vein, Percutaneous Approach (ICD-10-PCS; 2025-01-02)
DX: I95.2 Hypotension due to drugs (principal); D61.818 Other pancytopenia; T50.2X5A Adverse effect of carbonic-anhydrase inhibitors, benzothiadiazides and other diuretics, initial encounter; F10.90 Alcohol use, unspecified, uncomplicated; K70.31 Alcoholic cirrhosis of liver with ascites; N40.0 Benign prostatic hyperplasia without lower urinary tract symptoms; E66.01 Morbid (severe) obesity due to excess calories; F41.1 Generalized anxiety disorder; I48.0 Paroxysmal atrial fibrillation; E11.42 Type 2 diabetes mellitus with diabetic polyneuropathy; K72.90 Hepatic failure, unspecified without coma; K21.9 Gastro-esophageal reflux disease without esophagitis; Z95.0 Presence of cardiac pacemaker; Z71.41 Alcohol abuse counseling and surveillance of alcoholic; Z88.8 Allergy status to other drugs, medicaments and biological substances; D50.9 Iron deficiency anemia, unspecified; I25.2 Old myocardial infarction; Z68.30 Body mass index [BMI] 30.0-30.9, adult
CPT/HCPCS: 36415; 51798; 70450; 71046; 74177; 76705; 80053; 82040; 82140; 82947; 83605; 83615; 83690; 83735; 83880; 84100; 84443; 85014; 85018; 85025; 85027; 85610; 86850; 86900; 86901; 87637; 93005; 93010; 96361; 96365-59; 96366; 96367; 97162; 97530; 99285-25; A9270; G0378; J1815; J2543; J3373; J3475; J7030; J7040; J7050; J7120; P9047; Q9967

== ENCOUNTER 2025-01-09 10:06 | Emergency (ER) | payer OTHER ==
[~2025-01-09] VITALS: Ht 177.8 cm; Wt 100.2 kg
[~2025-01-09 10:06] MED LIST changes: +ALDACTONE25 MG PO; +EZETIMIBE10 M1 PO; +FERSU300 PO; +GABA300 PO; +GLIPIZIDE XL10 MG PO; +LACT10SY PO; +MIDO5 PO; +MUPIROCIN1 G1; +NALOXONE H0.4 MG/1 M IM; +NITROGLYCERIN0.4 M3 SL; +ONDA4ODT MM; +ONE DAILY ESS400 MCG PO; +OXYC10ER PO; +SITA100T2 PO; +TAMSULOSIN HCL0.4 M1 PO; +TORS10 PO
[2025-01-09 11:34] LABS: BASOPHILS ABSOLUTE AUTO 0.01 K/mm3 (0.00-0.23); BASOPHILS PERCENT AUTO 0 % (0-2); EOSINOPHILS ABSOLUTE AUTO 0.07 K/mm3 (0.00-0.68); EOSINOPHILS PERCENT AUTO 3 % (0-6); Hematocrit 33.6 % (37.0-53.0); Hemoglobin 11.8 g/dL (13.5-17.5); IMMATURE GRAN ABSOLUTE AUTO 0.01 K/mm3 (0.00-0.10); IMMATURE GRAN PERCENT AUTO 0 % (0-1); LYMPHOCYTES ABSOLUTE AUTO 0.65 K/mm3 (0.84-5.20); LYMPHOCYTES PERCENT AUTO 24 % (21-46); MONOCYTES ABSOLUTE AUTO 0.32 K/mm3 (0.16-1.47); MONOCYTES PERCENT AUTO 12 % (4-13); Mean Corpuscular HGB Conc 35.1 g/dL (31.5-36.5); Mean Corpuscular Volume 99 fL (80-100); NEUTROPHILS ABSOLUTE AUTO 1.67 K/mm3 (1.96-9.15); NEUTROPHILS PERCENT AUTO 61 % (41-73); NRBC ABSOLUTE 0.00 K/mm3 (0.00-0.02); NRBC Auto 0.0 /100 WBC (0.0-0.2); Platelet Count 54 K/mm3 (150-400); RDW Coefficient Variation 13.1 % (11.7-14.2); RDW Standard Deviation 47.7 fL (35.1-46.3)
[2025-01-09 11:49] LABS: Prothrombin Time Results 13.0 Sec (9.7-11.5)
[2025-01-09 12:04] LABS: Alanine Aminotransfer (ALT/SGP 28.0 U/L (12-78); Albumin, Blood 3.0 g/dL (3.4-5.0); Albumin/Globulin Ratio 0.9 (0.8-1.8); Anion Gap 9.0 mmol/L (3-11); Aspartate Aminotrans (AST/SGOT 40.0 U/L (12-37); Bilirubin, Total 2.2 mg/dL (0.1-1.0); Blood Urea Nitrogen 9.0 mg/dL (8-24); CO2, Blood 28.0 mmol/L (21-32); Calcium, Blood 8.1 mg/dL (8.5-10.1); Chloride, Blood 103.0 mmol/L (98-108); Creatinine, Blood 0.94 mg/dL (0.60-1.20); Globulin, Blood 3.4 g/dL (2.2-4.0); Glucose, Blood 261.0 mg/dL (70-99); Potassium, Blood 3.8 mmol/L (3.5-5.5); Sodium, Blood 136.0 mmol/L (136-145); Total Protein, Blood 6.4 g/dL (6.4-8.2)
[2025-01-09 13:45] VITALS: BP 123/721
[2025-01-09] MEDS ORDERED: OXAYDO5 M1 PO (14:58)
== END 2025-01-09 15:00 | disposition home or self-care (01) ==
LOC: ER 10:06
PROVIDERS: Emergency Medicine
DX: K74.60 Unspecified cirrhosis of liver (principal); I12.9 Hypertensive chronic kidney disease with stage 1 through stage 4 chronic kidney disease, or unspecified chronic kidney disease; E11.22 Type 2 diabetes mellitus with diabetic chronic kidney disease; N18.30 Chronic kidney disease, stage 3 unspecified; J44.9 Chronic obstructive pulmonary disease, unspecified; G47.33 Obstructive sleep apnea (adult) (pediatric); K21.9 Gastro-esophageal reflux disease without esophagitis; Z88.8 Allergy status to other drugs, medicaments and biological substances; Z79.4 Long term (current) use of insulin; Z79.899 Other long term (current) drug therapy; Z79.82 Long term (current) use of aspirin
CPT/HCPCS: 76705; 80053; 85025; 85610; 93005; 93010; 99284-25

== ENCOUNTER 2025-01-21 11:46 | Emergency (ER) | payer OTHER ==
[~2025-01-21] VITALS: Ht 177.8 cm; Wt 102.1 kg
[~2025-01-21 11:46] MED LIST changes: +OXAYDO5 M1 PO
[2025-01-21 12:54] LABS: BASOPHILS ABSOLUTE AUTO 0.02 K/mm3 (0.00-0.23); BASOPHILS PERCENT AUTO 1 % (0-2); EOSINOPHILS ABSOLUTE AUTO 0.06 K/mm3 (0.00-0.68); EOSINOPHILS PERCENT AUTO 2 % (0-6); Hematocrit 32.6 % (37.0-53.0); Hemoglobin 11.2 g/dL (13.5-17.5); IMMATURE GRAN ABSOLUTE AUTO 0.01 K/mm3 (0.00-0.10); IMMATURE GRAN PERCENT AUTO 0 % (0-1); LYMPHOCYTES ABSOLUTE AUTO 0.78 K/mm3 (0.84-5.20); LYMPHOCYTES PERCENT AUTO 19 % (21-46); MONOCYTES ABSOLUTE AUTO 0.61 K/mm3 (0.16-1.47); MONOCYTES PERCENT AUTO 15 % (4-13); Mean Corpuscular HGB Conc 34.4 g/dL (31.5-36.5); Mean Corpuscular Volume 101 fL (80-100); NEUTROPHILS ABSOLUTE AUTO 2.57 K/mm3 (1.96-9.15); NEUTROPHILS PERCENT AUTO 63 % (41-73); NRBC ABSOLUTE 0.00 K/mm3 (0.00-0.02); NRBC Auto 0.0 /100 WBC (0.0-0.2); Platelet Count 54 K/mm3 (150-400); RDW Coefficient Variation 12.9 % (11.7-14.2); RDW Standard Deviation 48.0 fL (35.1-46.3)
[2025-01-21 13:35] LABS: Alanine Aminotransfer (ALT/SGP 29.0 U/L (12-78); Albumin, Blood 2.9 g/dL (3.4-5.0); Albumin/Globulin Ratio 0.9 (0.8-1.8); Anion Gap 9.0 mmol/L (3-11); Aspartate Aminotrans (AST/SGOT 46.0 U/L (12-37); Bilirubin, Total 1.7 mg/dL (0.1-1.0); Blood Urea Nitrogen 17.0 mg/dL (8-24); CO2, Blood 28.0 mmol/L (21-32); Calcium, Blood 8.3 mg/dL (8.5-10.1); Chloride, Blood 101.0 mmol/L (98-108); Creatinine, Blood 1.03 mg/dL (0.60-1.20); Globulin, Blood 3.3 g/dL (2.2-4.0); Glucose, Blood 253.0 mg/dL (70-99); Potassium, Blood 4.5 mmol/L (3.5-5.5); Sodium, Blood 133.0 mmol/L (136-145); Total Protein, Blood 6.2 g/dL (6.4-8.2)
[2025-01-21 16:00] VITALS: BP 115/66
--- NOTE | 2025-01-21 16:41 | NUR ---
After a long conversation with the spouse of the patient, I visited the patient. He has his dtr and grandson bedside. The patient's spouse is a patient in ICU and was wondering about his condition and if he was going to be admitted to the hospital. Mr. Bellamy talked at greatlength about the stressors that he is facing with placing his in adult foster care, the financial pressures, the family unit complications and the humiliation he feels about the possibility of having to discharge from the ED with a catheter. I provided therapeutic listening, helped weigh risk vs benefits and provided support group material and gentle insurance counsel. He also gave me a message about his well being that he wanted me to tell his which I delivered. I will continue to remain available to patient and family.
== END 2025-01-21 17:18 | disposition home or self-care (01) ==
LOC: ER 11:46
PROVIDERS: Emergency Medicine
DX: R33.9 Retention of urine, unspecified (principal); I12.9 Hypertensive chronic kidney disease with stage 1 through stage 4 chronic kidney disease, or unspecified chronic kidney disease; E11.22 Type 2 diabetes mellitus with diabetic chronic kidney disease; N18.30 Chronic kidney disease, stage 3 unspecified; J44.9 Chronic obstructive pulmonary disease, unspecified; I25.2 Old myocardial infarction; K21.9 Gastro-esophageal reflux disease without esophagitis; E78.5 Hyperlipidemia, unspecified; G47.33 Obstructive sleep apnea (adult) (pediatric); Z95.0 Presence of cardiac pacemaker; Z79.4 Long term (current) use of insulin; Z79.82 Long term (current) use of aspirin; Z79.84 Long term (current) use of oral hypoglycemic drugs; Z79.899 Other long term (current) drug therapy; Z88.8 Allergy status to other drugs, medicaments and biological substances
CPT/HCPCS: 80053; 82140; 83690; 85025; 99283

== ENCOUNTER 2025-03-13 09:43 | Emergency (ER) | payer OTHER ==
[~2025-03-13] VITALS: Ht 177.8 cm; Wt 87.5 kg
[2025-03-13] MEDS ORDERED: FentaNYL Citrate 50 MCG/ML 2 ML Injection IV PRN (10:30)
[2025-03-13 10:38] LABS: BASOPHILS ABSOLUTE AUTO 0.03 K/mm3 (0.00-0.23); BASOPHILS PERCENT AUTO 1 % (0-2); EOSINOPHILS ABSOLUTE AUTO 0.20 K/mm3 (0.00-0.68); EOSINOPHILS PERCENT AUTO 4 % (0-6); Hematocrit 40.2 % (37.0-53.0); Hemoglobin 14.3 g/dL (13.5-17.5); IMMATURE GRAN ABSOLUTE AUTO 0.02 K/mm3 (0.00-0.10); IMMATURE GRAN PERCENT AUTO 0 % (0-1); LYMPHOCYTES ABSOLUTE AUTO 1.36 K/mm3 (0.84-5.20); LYMPHOCYTES PERCENT AUTO 27 % (21-46); MONOCYTES ABSOLUTE AUTO 0.72 K/mm3 (0.16-1.47); MONOCYTES PERCENT AUTO 14 % (4-13); Mean Corpuscular HGB Conc 35.6 g/dL (31.5-36.5); Mean Corpuscular Volume 94 fL (80-100); NEUTROPHILS ABSOLUTE AUTO 2.69 K/mm3 (1.96-9.15); NEUTROPHILS PERCENT AUTO 54 % (41-73); NRBC ABSOLUTE 0.00 K/mm3 (0.00-0.02); NRBC Auto 0.0 /100 WBC (0.0-0.2); Platelet Count 77 K/mm3 (150-400); RDW Coefficient Variation 12.1 % (11.7-14.2); RDW Standard Deviation 42.4 fL (35.1-46.3)
[2025-03-13 10:38] LABS: Calcium, Ionized (POC) 1.24 mmol/L (1.10-1.46); Chloride (POC) 99 mmol/L (98-108); Creatinine (POC) 1.1 mg/dL (0.8-1.3); Glucose (ISTAT POC) 445 mg/dL (70-99); Hematocrit (POC) 39.0 % (41.0-53.0); Hemoglobin (POC) 13.3 g/dL (13.5-17.5); Potassium (POC) 5.8 mmol/L (3.5-5.5); Sodium (POC) 129 mmol/L (135-148); Total CO2 (POC) 20 mmol/L (21-32)
[2025-03-13 10:55] LABS: Alanine Aminotransfer (ALT/SGP 34.0 U/L (12-78); Albumin, Blood 3.2 g/dL (3.4-5.0); Albumin/Globulin Ratio 0.9 (0.8-1.8); Anion Gap 11.0 mmol/L (3-11); Aspartate Aminotrans (AST/SGOT 36.0 U/L (12-37); Bilirubin, Total 1.9 mg/dL (0.1-1.0); Blood Urea Nitrogen 18.0 mg/dL (8-24); CO2, Blood 24.0 mmol/L (21-32); Calcium, Blood 9.0 mg/dL (8.5-10.1); Chloride, Blood 100.0 mmol/L (98-108); Creatinine, Blood 0.98 mg/dL (0.60-1.20); Globulin, Blood 3.5 g/dL (2.2-4.0); Glucose, Blood 396.0 mg/dL (70-99); Potassium, Blood 5.5 mmol/L (3.5-5.5); Sodium, Blood 129.0 mmol/L (136-145); Total Protein, Blood 6.7 g/dL (6.4-8.2)
[2025-03-13] MEDS ORDERED: NS 1,000 ML IV SCH (11:05)
[2025-03-13] MEDS ORDERED: Insulin Regular 100 Unit/ML 1ML Dose SC ONE (11:05)
[2025-03-13 11:45] VITALS: BP 96/49
== END 2025-03-13 11:55 | disposition home or self-care (01) ==
LOC: ER 09:43
PROVIDERS: Emergency Medicine
DX: D61.818 Other pancytopenia (principal); E87.1 Hypo-osmolality and hyponatremia; E80.6 Other disorders of bilirubin metabolism; T50.0X5A Adverse effect of mineralocorticoids and their antagonists, initial encounter; E11.65 Type 2 diabetes mellitus with hyperglycemia; I48.0 Paroxysmal atrial fibrillation; K21.9 Gastro-esophageal reflux disease without esophagitis; I25.2 Old myocardial infarction; Z95.0 Presence of cardiac pacemaker; Z88.8 Allergy status to other drugs, medicaments and biological substances; Z79.84 Long term (current) use of oral hypoglycemic drugs; Z79.4 Long term (current) use of insulin; Z79.82 Long term (current) use of aspirin; Z79.899 Other long term (current) drug therapy
CPT/HCPCS: 80047; 80053; 83605; 84484; 85014; 85025; 93005; 93010; 96361; 96374; 99283-25; A9270; J1815; J3010; J7030

== ENCOUNTER 2025-03-19 13:15 | Emergency (ER) | payer OTHER ==
[~2025-03-19] VITALS: Ht 177.8 cm; Wt 95.2 kg
[2025-03-19 13:55] LABS: CORONAVIRUS COVID-19 AG Negative (NEGATIVE)
[2025-03-19 14:22] LABS: BASOPHILS ABSOLUTE AUTO 0.02 K/mm3 (0.00-0.23); BASOPHILS PERCENT AUTO 0 % (0-2); EOSINOPHILS ABSOLUTE AUTO 0.07 K/mm3 (0.00-0.68); EOSINOPHILS PERCENT AUTO 1 % (0-6); Hematocrit 37.8 % (37.0-53.0); Hemoglobin 13.4 g/dL (13.5-17.5); IMMATURE GRAN ABSOLUTE AUTO 0.03 K/mm3 (0.00-0.10); IMMATURE GRAN PERCENT AUTO 1 % (0-1); LYMPHOCYTES ABSOLUTE AUTO 0.59 K/mm3 (0.84-5.20); LYMPHOCYTES PERCENT AUTO 9 % (21-46); MONOCYTES ABSOLUTE AUTO 0.47 K/mm3 (0.16-1.47); MONOCYTES PERCENT AUTO 8 % (4-13); Mean Corpuscular HGB Conc 35.4 g/dL (31.5-36.5); Mean Corpuscular Volume 93 fL (80-100); NEUTROPHILS ABSOLUTE AUTO 5.10 K/mm3 (1.96-9.15); NEUTROPHILS PERCENT AUTO 81 % (41-73); NRBC ABSOLUTE 0.00 K/mm3 (0.00-0.02); NRBC Auto 0.0 /100 WBC (0.0-0.2); RDW Coefficient Variation 12.1 % (11.7-14.2); RDW Standard Deviation 42.2 fL (35.1-46.3)
[2025-03-19 14:27] LABS: Magnesium, Blood 2.0 mg/dL (1.6-2.4)
[2025-03-19 14:28] LABS: Alanine Aminotransfer (ALT/SGP 46.0 U/L (12-78); Albumin, Blood 3.1 g/dL (3.4-5.0); Albumin/Globulin Ratio 1.0 (0.8-1.8); Anion Gap 10.0 mmol/L (3-11); Aspartate Aminotrans (AST/SGOT 55.0 U/L (12-37); Bilirubin, Total 2.9 mg/dL (0.1-1.0); Blood Urea Nitrogen 13.0 mg/dL (8-24); CO2, Blood 23.0 mmol/L (21-32); Calcium, Blood 8.6 mg/dL (8.5-10.1); Chloride, Blood 108.0 mmol/L (98-108); Creatinine, Blood 0.81 mg/dL (0.60-1.20); Globulin, Blood 3.2 g/dL (2.2-4.0); Glucose, Blood 243.0 mg/dL (70-99); Potassium, Blood 4.3 mmol/L (3.5-5.5); Sodium, Blood 137.0 mmol/L (136-145); Total Protein, Blood 6.3 g/dL (6.4-8.2)
[2025-03-19 14:32] LABS: Platelet Count 46 K/mm3 (150-400)
[2025-03-19 15:26] LABS: Source, Urine Clean Catch
[2025-03-19 15:37] LABS: Color, Urine Amber (P-Yellow); Glucose Qualitative, Urine 4+ (Neg); Ketones, Urine Neg (Neg); Leukocyte Esterase, Urine 1+ (Neg); Protein, Urine 2+ (Neg); Specific Gravity, Urine 1.025 (1.003-1.022); Urobilinogen, Urine 2+ (Normal)
[2025-03-19 16:05] LABS: Bilirubin, Urine 1+ (Neg)
[2025-03-19 16:06] LABS: Red Blood Cells, Urine 0-2 /hpf (0-2)
[2025-03-19] MEDS ORDERED: FentaNYL Citrate 50 MCG/ML 2 ML Injection IV ONE ×2 (16:25→18:20)
[2025-03-19] MEDS ORDERED: Ondansetron HCl 2 MG / ML 2ML Vial IV ONE (16:25)
[2025-03-19] MEDS ORDERED: PANT40 PO (18:48)
[2025-03-19] MEDS ORDERED: Pantoprazole Sodium 40 MG Injection IV ONE (18:50)
[2025-03-19 19:00] VITALS: BP 160/79
== END 2025-03-19 19:08 | disposition home or self-care (01) ==
LOC: ER 13:15
PROVIDERS: Physician Assistant
DX: R10.12 Left upper quadrant pain (principal); E80.6 Other disorders of bilirubin metabolism; R74.01 Elevation of levels of liver transaminase levels; D64.9 Anemia, unspecified; D69.6 Thrombocytopenia, unspecified; E72.20 Disorder of urea cycle metabolism, unspecified; K70.30 Alcoholic cirrhosis of liver without ascites; E11.9 Type 2 diabetes mellitus without complications; I48.20 Chronic atrial fibrillation, unspecified; I25.2 Old myocardial infarction; Z95.0 Presence of cardiac pacemaker; K21.9 Gastro-esophageal reflux disease without esophagitis; Z88.8 Allergy status to other drugs, medicaments and biological substances; Z79.84 Long term (current) use of oral hypoglycemic drugs; Z79.01 Long term (current) use of anticoagulants; Z79.4 Long term (current) use of insulin; Z79.82 Long term (current) use of aspirin; Z79.899 Other long term (current) drug therapy
CPT/HCPCS: 74177; 80053; 81001; 82140; 83605; 83690; 83735; 85025; 87077; 87086; 87186; 87428-QW; 93005; 93010; 93971; 96374-59; 96375; 99284-25; A9270; J2405; J2470; J3010; Q9967

== ENCOUNTER → 2025-03-22 | Outpatient (CLI) | payer OTHER ==
[~2025-03-22] MED LIST changes: +PANT40 PO
== END | disposition home or self-care (01) ==
LOC: LAB SHORT 16:02 → LAB 16:02
DX: N39.0 Urinary tract infection, site not specified (principal)
CPT/HCPCS: 87086

== ENCOUNTER 2025-04-05 07:51 | Day surgery (SDC) | payer OTHER ==
[2025-04-05 07:14] VITALS: BP 113/98
[~2025-04-05 07:51] MED LIST changes: +NS 250 ML IV SCH
[2025-04-05 08:24] VITALS: BP 99/59
[2025-04-05 08:52] VITALS: BP 98/56
[2025-04-05 09:13] VITALS: BP 95/59
[2025-04-05 09:35] VITALS: BP 90/55
[2025-04-05] MEDS ORDERED: Amlodipine Besyl5 MG PO (09:49)
[2025-04-05] MEDS ORDERED: Nadolol20 MG PO (09:49)
[2025-04-05] MEDS ORDERED: THERA-D2000 UNIT PO (09:51)
[2025-04-05] MEDS ORDERED: BUME2 PO (09:51)
--- NOTE | 2025-04-05 10:09 | NUR ---
PT'S PLATLET TRANSFUSION IS COMPLETED AT 0935. SPOKE WITH RADIOLOGY STAFF AND THEY ARE EXPECTING PT TO CHECK IN TO THEIR DEPARTMENT SOON HE LEAVES THE APRIL. PT'S LABS DRAWN 30 MIN POST TRANSFUSION. PT DC'D AT 1009 WITH DTR. HE IS HEADING UP TO ADMITTING TO CHECK IN FOR THE RADIOLOGY DEPARTMENT.
[2025-04-05 10:30] LABS: BASOPHILS ABSOLUTE AUTO 0.01 K/mm3 (0.00-0.23); BASOPHILS PERCENT AUTO 0 % (0-2); EOSINOPHILS ABSOLUTE AUTO 0.10 K/mm3 (0.00-0.68); EOSINOPHILS PERCENT AUTO 3 % (0-6); Hematocrit 35.8 % (37.0-53.0); Hemoglobin 12.4 g/dL (13.5-17.5); IMMATURE GRAN ABSOLUTE AUTO 0.01 K/mm3 (0.00-0.10); IMMATURE GRAN PERCENT AUTO 0 % (0-1); LYMPHOCYTES ABSOLUTE AUTO 0.78 K/mm3 (0.84-5.20); LYMPHOCYTES PERCENT AUTO 21 % (21-46); MONOCYTES ABSOLUTE AUTO 0.49 K/mm3 (0.16-1.47); MONOCYTES PERCENT AUTO 13 % (4-13); Mean Corpuscular HGB Conc 34.6 g/dL (31.5-36.5); Mean Corpuscular Volume 94 fL (80-100); NEUTROPHILS ABSOLUTE AUTO 2.40 K/mm3 (1.96-9.15); NEUTROPHILS PERCENT AUTO 63 % (41-73); NRBC ABSOLUTE 0.00 K/mm3 (0.00-0.02); NRBC Auto 0.0 /100 WBC (0.0-0.2); Platelet Count 80 K/mm3 (150-400); RDW Coefficient Variation 12.5 % (11.7-14.2); RDW Standard Deviation 43.2 fL (35.1-46.3)
[2025-04-05 10:40] LABS: Prothrombin Time Results 12.8 Sec (9.7-11.5)
== END 2025-04-05 10:09 | disposition home or self-care (01) ==
LOC: CANPRESDC → ATC 07:51
PROVIDERS: Physician Assistant Medical
DX: D69.6 Thrombocytopenia, unspecified (principal); I12.9 Hypertensive chronic kidney disease with stage 1 through stage 4 chronic kidney disease, or unspecified chronic kidney disease; E11.22 Type 2 diabetes mellitus with diabetic chronic kidney disease; N18.30 Chronic kidney disease, stage 3 unspecified; J44.9 Chronic obstructive pulmonary disease, unspecified; G47.33 Obstructive sleep apnea (adult) (pediatric); E78.5 Hyperlipidemia, unspecified; K21.9 Gastro-esophageal reflux disease without esophagitis; K70.31 Alcoholic cirrhosis of liver with ascites; F10.10 Alcohol abuse, uncomplicated; Z86.0109 Personal history of other colon polyps
CPT/HCPCS: 36430; 36591; 76705; 85025; 85610; 85730; 86900; 86901; 99211; J7050; P9035

== ENCOUNTER → 2025-04-10 | Outpatient (CLI) | payer OTHER ==
[~2025-04-10] MED LIST changes: +Amlodipine Besyl5 MG PO; +BUME2 PO; -NS 250 ML IV SCH; +Nadolol20 MG PO; +THERA-D2000 UNIT PO
[2025-04-10 14:20] LABS: Microalbumin, Urine Quant. 7.900 mg/L (0.000-20.000)
[2025-04-10 14:30] LABS: Protein, Urine Quantitative <5.0 mg/dL (0.0-11.9)
== END | disposition home or self-care (01) ==
LOC: LAB 12:20 → LAB SHORT 12:20 → LAB FUT 04-01 09:05
PROVIDERS: Internal Medicine Nephrology
DX: N18.30 Chronic kidney disease, stage 3 unspecified (principal); D63.1 Anemia in chronic kidney disease; E29.1 Testicular hypofunction; E55.9 Vitamin D deficiency, unspecified; N25.81 Secondary hyperparathyroidism of renal origin; G60.9 Hereditary and idiopathic neuropathy, unspecified; R94.5 Abnormal results of liver function studies; R76.9 Abnormal immunological finding in serum, unspecified
CPT/HCPCS: 81050; 82043; 82570; 84156